=== PATIENT | male | born 1930 | race Caucasian/White ===

== ENCOUNTER → 2016-07-12 | Outpatient (CLI) | payer MEDICARE, BC ==
[~2016-07-12] MED LIST: /AMIO20TA OR; /TAMS4CA OR; /WARF5TA OR; ACET65TA OR; ATEN25TA PO; ATEN50TA2 OR; CALCTAB22 OR; FLEC50TA PO; MAGN500T2 OR; MULTIVIT OR; PRAD150C PO; PRADAXA OR; PRAV40TA2 PO; PROS5TAB OR; VITA200038 PO
[2016-07-12 12:42] LABS: MEAN CORPUSCULAR HEMOGLOBIN 30.1 pg (27.0-33.0); MEAN CORPUSCULAR HGB CONC 33.4 g/dl (32.0-36.5); MEAN CORPUSCULAR VOLUME 89.9 fl (80.0-96.0); RED CELL DISTRIBUTION WIDTH 13.8 % (11.5-14.5); WHITE BLOOD COUNT 6.3 K/mm3 (4.0-10.0)
[2016-07-12 13:15] LABS: ALBUMIN 3.9 GM/DL (3.2-5.2); ALBUMIN/GLOBULIN RATIO 1.18 (1.00-1.93); BILIRUBIN,TOTAL 0.7 MG/DL (0.2-1.0); CALCIUM LEVEL 9.1 MG/DL (8.8-10.2); CREATININE FOR GFR 1.25 MG/DL (0.70-1.30); GLOMERULAR FILTRATION RATE 58.6 (>35); MAGNESIUM LEVEL 2.1 MG/DL (1.8-2.4); POTASSIUM SERUM 4.1 MEQ/L (3.5-5.1); TOTAL PROTEIN 7.2 GM/DL (6.4-8.2)
== END ==
LOC: M SMT 08:12
PROVIDERS: ATTEND Physician Assistant
DX: I48.0 Paroxysmal atrial fibrillation (principal); E78.00 Pure hypercholesterolemia, unspecified; I11.9 Hypertensive heart disease without heart failure

== ENCOUNTER → 2016-07-13 | Outpatient (CLI) | payer MEDICARE, BC ==
[2016-07-13 15:09] LABS: ALBUMIN 3.8 GM/DL (3.2-5.2); ALBUMIN/GLOBULIN RATIO 1.23 (1.00-1.93); ALKALINE PHOSPHATASE 101 U/L (45-117); ALT/SGPT 26 U/L (12-78); ANION GAP 8 MEQ/L (8-16); AST/SGOT 24 U/L (15-37); BILIRUBIN,TOTAL 0.6 MG/DL (0.2-1.0); BLOOD UREA NITROGEN 19 MG/DL (7-18); CALCIUM LEVEL 9.1 MG/DL (8.8-10.2); CARBON DIOXIDE LEVEL 30 MEQ/L (21-32); CHLORIDE LEVEL 104 MEQ/L (98-107); CREATININE FOR GFR 1.18 MG/DL (0.70-1.30); GLOMERULAR FILTRATION RATE > 60.0 (>35); GLUCOSE, FASTING 110 MG/DL (83-110); POTASSIUM SERUM 4.5 MEQ/L (3.5-5.1); SODIUM LEVEL 142 MEQ/L (136-145); TOTAL PROTEIN 6.9 GM/DL (6.4-8.2)
[2016-07-13 15:43] LABS: BASO % 0.4 % (0.0-1.0); EOS # 0.1 K/mm3 (0.0-0.50); EOS % 1.3 % (0.0-3.0); LARGE UNSTAINED CELL # 0.2 K/mm3 (0.0-0.4); LARGE UNSTAINED CELL % 3.3 % (0.0-4.0); LYMPH # 0.9 K/mm3 (1.5-4.5); LYMPH % 14.2 % (24.0-44.0); MEAN CORPUSCULAR HEMOGLOBIN 29.4 pg (27.0-33.0); MEAN CORPUSCULAR HGB CONC 32.2 g/dl (32.0-36.5); MEAN CORPUSCULAR VOLUME 91.3 fl (80.0-96.0); MONO # 0.5 K/mm3 (0.0-0.8); MONO % 8.6 % (0.0-5.0); NEUTROPHILS # 4.3 K/mm3 (1.8-7.7); NEUTROPHILS % 72.2 % (36.0-66.0); PLATELET COUNT, AUTOMATED 171 k/mm3 (150-450)
== END ==
LOC: M SMT 11:07
PROVIDERS: ATTEND Internal Medicine Hematology & Oncology
DX: C83.13 Mantle cell lymphoma, intra-abdominal lymph nodes (principal)

== ENCOUNTER → 2016-07-13 | Outpatient (REF) | LOC: M SMT 10:59 | PROVIDERS: ATTEND Nurse Practitioner Adult Health | DX: Z02.89 Encounter for other administrative examinations (principal) ==

== ENCOUNTER → 2016-09-14 | Outpatient (CLI) | payer MEDICARE, BC | LOC: M SMT 09:48 | PROVIDERS: ATTEND Urology | DX: Z85.46 Personal history of malignant neoplasm of prostate (principal) ==

== ENCOUNTER → 2017-01-06 | Outpatient (CLI) | payer MEDICARE, BC ==
[2017-01-06 14:04] LABS: MEAN CORPUSCULAR HEMOGLOBIN 31.4 pg (27.0-33.0); MEAN CORPUSCULAR HGB CONC 34.6 g/dl (32.0-36.5); MEAN CORPUSCULAR VOLUME 90.7 fl (80.0-96.0); RED CELL DISTRIBUTION WIDTH 13.6 % (11.5-14.5); WHITE BLOOD COUNT 5.9 K/mm3 (4.0-10.0)
[2017-01-06 15:03] LABS: ALBUMIN 3.5 GM/DL (3.2-5.2); ALBUMIN/GLOBULIN RATIO 1.13 (1.00-1.93); BILIRUBIN,TOTAL 0.4 MG/DL (0.2-1.0); CALCIUM LEVEL 8.8 MG/DL (8.8-10.2); CREATININE FOR GFR 1.28 MG/DL (0.70-1.30); POTASSIUM SERUM 4.3 MEQ/L (3.5-5.1); TOTAL PROTEIN 6.6 GM/DL (6.4-8.2)
== END ==
LOC: M SMT 09:18
PROVIDERS: ATTEND Physician Assistant
DX: I48.0 Paroxysmal atrial fibrillation (principal); I11.9 Hypertensive heart disease without heart failure; E78.2 Mixed hyperlipidemia

== ENCOUNTER → 2017-01-14 | Outpatient (CLI) | payer MEDICARE, BC ==
[2017-01-14 10:08] LABS: BASO % 0.7 % (0.0-1.0); EOS # 0.3 K/mm3 (0.0-0.50); EOS % 4.2 % (0.0-3.0); LARGE UNSTAINED CELL # 0.1 K/mm3 (0.0-0.4); LYMPH # 1.3 K/mm3 (1.5-4.5); LYMPH % 20.2 % (24.0-44.0); MEAN CORPUSCULAR HEMOGLOBIN 30.2 pg (27.0-33.0); MEAN CORPUSCULAR HGB CONC 33.7 g/dl (32.0-36.5); MEAN CORPUSCULAR VOLUME 89.7 fl (80.0-96.0); MONO # 0.4 K/mm3 (0.0-0.8); MONO % 6.7 % (0.0-5.0); NEUTROPHILS % 66.2 % (36.0-66.0); PLATELET COUNT, AUTOMATED 184 k/mm3 (150-450); RED CELL DISTRIBUTION WIDTH 13.7 % (11.5-14.5); WHITE BLOOD COUNT 6.1 K/mm3 (4.0-10.0)
[2017-01-14 10:32] LABS: ALBUMIN 3.4 GM/DL (3.2-5.2); ALBUMIN/GLOBULIN RATIO 1.13 (1.00-1.93); ALKALINE PHOSPHATASE 92 U/L (45-117); ALT/SGPT 23 U/L (12-78); ANION GAP 10 MEQ/L (8-16); AST/SGOT 14 U/L (15-37); BILIRUBIN,TOTAL 0.4 MG/DL (0.2-1.0); BLOOD UREA NITROGEN 23 MG/DL (7-18); CARBON DIOXIDE LEVEL 28 MEQ/L (21-32); CHLORIDE LEVEL 106 MEQ/L (98-107); CREATININE FOR GFR 1.13 MG/DL (0.70-1.30); GLOMERULAR FILTRATION RATE > 60.0 (>35); GLUCOSE, FASTING 119 MG/DL (83-110); POTASSIUM SERUM 4.1 MEQ/L (3.5-5.1); SODIUM LEVEL 144 MEQ/L (136-145); TOTAL PROTEIN 6.4 GM/DL (6.4-8.2)
== END ==
LOC: M SMT 08:37
PROVIDERS: ATTEND Internal Medicine Hematology & Oncology
DX: C83.13 Mantle cell lymphoma, intra-abdominal lymph nodes (principal)

== ENCOUNTER → 2017-01-25 | Outpatient (CLI) | payer MEDICARE, BC ==
[2017-01-25 14:40] LABS: BASO % 0.7 % (0.0-1.0); EOS # 0.3 K/mm3 (0.0-0.50); EOS % 4.9 % (0.0-3.0); LARGE UNSTAINED CELL # 0.1 K/mm3 (0.0-0.4); LARGE UNSTAINED CELL % 1.7 % (0.0-4.0); LYMPH # 1.1 K/mm3 (1.5-4.5); LYMPH % 19.7 % (24.0-44.0); MEAN CORPUSCULAR HEMOGLOBIN 30.3 pg (27.0-33.0); MEAN CORPUSCULAR HGB CONC 33.6 g/dl (32.0-36.5); MEAN CORPUSCULAR VOLUME 90.2 fl (80.0-96.0); MONO # 0.5 K/mm3 (0.0-0.8); MONO % 8.5 % (0.0-5.0); NEUTROPHILS # 3.5 K/mm3 (1.8-7.7); NEUTROPHILS % 64.6 % (36.0-66.0); PLATELET COUNT, AUTOMATED 162 k/mm3 (150-450); RED CELL DISTRIBUTION WIDTH 13.6 % (11.5-14.5); WHITE BLOOD COUNT 5.4 K/mm3 (4.0-10.0)
[2017-01-25 15:09] LABS: ALBUMIN 3.6 GM/DL (3.2-5.2); ALBUMIN/GLOBULIN RATIO 1.16 (1.00-1.93); ALKALINE PHOSPHATASE 98 U/L (45-117); ALT/SGPT 18 U/L (12-78); ANION GAP 9 MEQ/L (8-16); AST/SGOT 13 U/L (15-37); BILIRUBIN,TOTAL 0.3 MG/DL (0.2-1.0); BLOOD UREA NITROGEN 20 MG/DL (7-18); CALCIUM LEVEL 8.9 MG/DL (8.8-10.2); CARBON DIOXIDE LEVEL 26 MEQ/L (21-32); CHLORIDE LEVEL 109 MEQ/L (98-107); CHOLESTEROL LEVEL 129 MG/DL (<200); GLOMERULAR FILTRATION RATE > 60.0 (>35); GLUCOSE, FASTING 107 MG/DL (83-110); POTASSIUM SERUM 4.5 MEQ/L (3.5-5.1); SODIUM LEVEL 144 MEQ/L (136-145); TOTAL PROTEIN 6.7 GM/DL (6.4-8.2); TRIGLYCERIDES LEVEL 113 MG/DL (<150)
== END ==
LOC: M SMT 08:01
PROVIDERS: ATTEND Family Medicine
DX: I48.2 Chronic atrial fibrillation (principal); E78.2 Mixed hyperlipidemia

== ENCOUNTER → 2017-07-11 | Outpatient (CLI) | payer MEDICARE, BC ==
[2017-07-13 00:06] LABS: FLECAINIDE LEVEL 0.54 ug/mL (0.20-1.00)
== END ==
LOC: M SMT 08:41
DX: I48.0 Paroxysmal atrial fibrillation (principal); Z79.899 Other long term (current) drug therapy
CPT/HCPCS: 36415

== ENCOUNTER 2017-07-28 01:25 | Emergency (ER) | payer MEDICARE, BC ==
[2017-07-28 02:29] LABS: BASO % 0.5 % (0.0-1.0); HEMATOCRIT 41.3 % (42.0-52.0); HEMOGLOBIN 13.7 g/dl (14.0-18.0); IMMATURE GRANULOCYTE % 0.4 % (0-3.0); LYMPH # 1.5 10^3/uL (1.5-4.5); LYMPH % 19.2 % (24.0-44.0); MEAN CORPUSCULAR HEMOGLOBIN 29.9 pg (27.0-33.0); MEAN CORPUSCULAR HGB CONC 33.2 g/dl (32.0-36.5); MEAN CORPUSCULAR VOLUME 90.2 fl (80.0-96.0); MONO # 0.8 10^3/uL (0.0-0.8); MONO % 9.8 % (0.0-5.0); NEUTROPHILS # 5.3 10^3/uL (1.8-7.7); NEUTROPHILS % 70.1 % (36.0-66.0); PLATELET COUNT, AUTOMATED 201 10^3/uL (150-450); RED BLOOD COUNT 4.58 10^6/uL (4.30-6.10); RED CELL DISTRIBUTION WIDTH 14.1 % (11.5-14.5); WHITE BLOOD COUNT 7.6 10^3/uL (4.0-10.0)
[2017-07-28 02:48] LABS: ANION GAP 7 MEQ/L (8-16); BLOOD UREA NITROGEN 21 MG/DL (7-18); CALCIUM LEVEL 8.9 MG/DL (8.8-10.2); CARBON DIOXIDE LEVEL 27 MEQ/L (21-32); CHLORIDE LEVEL 104 MEQ/L (98-107); CPK CREATINE PHOSPHOKINASE 91 U/L (39-308); CREATININE FOR GFR 1.38 MG/DL (0.70-1.30); FREE THYROXINE INDEX 3.9 % (1.4-3.8); GLOMERULAR FILTRATION RATE 52.1 (>35); GLUCOSE, FASTING 142 MG/DL (70-100); POTASSIUM SERUM 4.3 MEQ/L (3.5-5.1); SODIUM LEVEL 138 MEQ/L (136-145); T UPTAKE 34 % (33-40); THYROXINE (T4) 11.5 UG/DL (4.5-12.0); TROPONIN I 0.02 NG/ML (< 0.10)
[2017-07-28 02:53] LABS: CK-MB VALUE MASS 1.1 NG/ML (0.0-3.6)
[2017-07-28] MEDS: NS 500 ML IV (03:15)
== END 2017-07-28 04:26 | disposition home or self-care (01) ==
LOC: M ED 01:25
DX: E86.0 Dehydration (principal); T46.2X5A Adverse effect of other antidysrhythmic drugs, initial encounter; X58.XXXA Exposure to other specified factors, initial encounter; Y92.89 Other specified places as the place of occurrence of the external cause; I10 Essential (primary) hypertension; I48.91 Unspecified atrial fibrillation; N40.0 Benign prostatic hyperplasia without lower urinary tract symptoms; Z95.0 Presence of cardiac pacemaker; Z79.899 Other long term (current) drug therapy; Z79.01 Long term (current) use of anticoagulants
CPT/HCPCS: 70450

== ENCOUNTER → 2017-07-29 | Outpatient (CLI) | payer MEDICARE, BC ==
[2017-08-02 00:06] LABS: FLECAINIDE LEVEL 0.97 ug/mL (0.20-1.00)
== END ==
LOC: M SMT 09:22
DX: I48.3 Typical atrial flutter (principal); I48.0 Paroxysmal atrial fibrillation; Z79.899 Other long term (current) drug therapy
CPT/HCPCS: 36415

== ENCOUNTER → 2017-09-02 | Outpatient (CLI) | payer MEDICARE, BC ==
[2017-09-02 09:21] LABS: BASO % 0.4 % (0.0-1.0); HEMATOCRIT 38.1 % (42.0-52.0); HEMOGLOBIN 12.6 g/dl (14.0-18.0); IMMATURE GRANULOCYTE % 0.3 % (0-3.0); LYMPH # 1.1 10^3/uL (1.5-4.5); LYMPH % 15.5 % (24.0-44.0); MEAN CORPUSCULAR HEMOGLOBIN 29.1 pg (27.0-33.0); MEAN CORPUSCULAR HGB CONC 33.1 g/dl (32.0-36.5); MONO # 0.7 10^3/uL (0.0-0.8); MONO % 9.8 % (0.0-5.0); NEUTROPHILS # 5.3 10^3/uL (1.8-7.7); PLATELET COUNT, AUTOMATED 184 10^3/uL (150-450); RED BLOOD COUNT 4.33 10^6/uL (4.30-6.10); RED CELL DISTRIBUTION WIDTH 13.1 % (11.5-14.5); WHITE BLOOD COUNT 7.2 10^3/uL (4.0-10.0)
[2017-09-02 10:45] LABS: ALBUMIN 3.5 GM/DL (3.2-5.2); ALBUMIN/GLOBULIN RATIO 1.09 (1.00-1.93); ALKALINE PHOSPHATASE 92 U/L (45-117); ALT/SGPT 16 U/L (12-78); ANION GAP 11 MEQ/L (8-16); AST/SGOT 12 U/L (7-37); BILIRUBIN,TOTAL 0.7 MG/DL (0.2-1.0); BLOOD UREA NITROGEN 19 MG/DL (7-18); CALCIUM LEVEL 8.6 MG/DL (8.8-10.2); CARBON DIOXIDE LEVEL 23 MEQ/L (21-32); CHLORIDE LEVEL 109 MEQ/L (98-107); CREATININE FOR GFR 1.27 MG/DL (0.70-1.30); FREE T4 1.53 NG/DL (0.76-1.46); GLOMERULAR FILTRATION RATE 57.4 (>35); GLUCOSE, FASTING 102 MG/DL (70-100); POTASSIUM SERUM 4.3 MEQ/L (3.5-5.1); SODIUM LEVEL 143 MEQ/L (136-145); TOTAL PROTEIN 6.7 GM/DL (6.4-8.2)
== END ==
LOC: M SMT 08:08
DX: Z00.00 Encounter for general adult medical examination without abnormal findings (principal); Z79.01 Long term (current) use of anticoagulants; C83.10 Mantle cell lymphoma, unspecified site; I48.2 Chronic atrial fibrillation
CPT/HCPCS: 84443

== ENCOUNTER → 2017-09-08 | Outpatient (CLI) | payer MEDICARE, BC ==
[2017-09-08 18:45] LABS: PSA SCREENING 0.05 NG/ML (< 4.0)
== END ==
LOC: M SMT 13:07
DX: Z85.46 Personal history of malignant neoplasm of prostate (principal)
CPT/HCPCS: 84153; G0103

== ENCOUNTER → 2018-01-31 | Outpatient (CLI) | payer MEDICARE, BC ==
[2018-01-31 13:01] LABS: BASO % 0.5 % (0.0-1.0); HEMATOCRIT 41.1 % (42.0-52.0); HEMOGLOBIN 13.4 g/dl (13.5-17.5); IMMATURE GRANULOCYTE % 0.2 % (0-3.0); LYMPH # 1.2 10^3/uL (1.5-4.5); LYMPH % 18.8 % (24.0-44.0); MEAN CORPUSCULAR HEMOGLOBIN 30.2 pg (27.0-33.0); MEAN CORPUSCULAR HGB CONC 32.6 g/dl (32.0-36.5); MEAN CORPUSCULAR VOLUME 92.6 fl (80.0-96.0); MONO # 0.6 10^3/uL (0.0-0.8); MONO % 8.8 % (0.0-5.0); NEUTROPHILS # 4.6 10^3/uL (1.8-7.7); NEUTROPHILS % 71.7 % (36.0-66.0); PLATELET COUNT, AUTOMATED 160 10^3/uL (150-450); RED BLOOD COUNT 4.44 10^6/uL (4.30-6.10); RED CELL DISTRIBUTION WIDTH 13.5 % (11.5-14.5); WHITE BLOOD COUNT 6.4 10^3/uL (4.0-10.0)
[2018-01-31 13:22] LABS: ALBUMIN 3.4 GM/DL (3.2-5.2); ALBUMIN/GLOBULIN RATIO 1.03 (1.00-1.93); ALKALINE PHOSPHATASE 91 U/L (45-117); ALT/SGPT 26 U/L (12-78); ANION GAP 7 MEQ/L (8-16); AST/SGOT 19 U/L (7-37); BILIRUBIN,TOTAL 0.4 MG/DL (0.2-1.0); BLOOD UREA NITROGEN 18 MG/DL (7-18); CARBON DIOXIDE LEVEL 31 MEQ/L (21-32); CHLORIDE LEVEL 108 MEQ/L (98-107); CREATININE FOR GFR 1.21 MG/DL (0.70-1.30); GLOMERULAR FILTRATION RATE > 60.0 (>35); GLUCOSE, FASTING 107 MG/DL (70-100); LDH LACTATE DEHYDROGENASE 266 U/L (87-241); POTASSIUM SERUM 4.2 MEQ/L (3.5-5.1); SODIUM LEVEL 146 MEQ/L (136-145); TOTAL PROTEIN 6.7 GM/DL (6.4-8.2)
== END ==
LOC: M SMT 09:34
DX: C83.10 Mantle cell lymphoma, unspecified site (principal)
CPT/HCPCS: 83615

== ENCOUNTER → 2018-02-28 | Outpatient (CLI) | payer MEDICARE, BC ==
[2018-02-28 14:03] LABS: BASO % 0.5 % (0.0-1.0); HEMATOCRIT 42.3 % (42.0-52.0); HEMOGLOBIN 13.6 g/dl (13.5-17.5); IMMATURE GRANULOCYTE % 0.2 % (0-3.0); LYMPH # 1.4 10^3/uL (1.5-4.5); LYMPH % 22.3 % (24.0-44.0); MEAN CORPUSCULAR HEMOGLOBIN 30.4 pg (27.0-33.0); MEAN CORPUSCULAR HGB CONC 32.2 g/dl (32.0-36.5); MEAN CORPUSCULAR VOLUME 94.6 fl (80.0-96.0); MONO # 0.6 10^3/uL (0.0-0.8); MONO % 9.7 % (0.0-5.0); NEUTROPHILS # 4.1 10^3/uL (1.8-7.7); NEUTROPHILS % 67.3 % (36.0-66.0); PLATELET COUNT, AUTOMATED 160 10^3/uL (150-450); RED BLOOD COUNT 4.47 10^6/uL (4.30-6.10); RED CELL DISTRIBUTION WIDTH 13.7 % (11.5-14.5); WHITE BLOOD COUNT 6.1 10^3/uL (4.0-10.0)
[2018-02-28 14:44] LABS: ALBUMIN 3.6 GM/DL (3.2-5.2); ALBUMIN/GLOBULIN RATIO 1.13 (1.00-1.93); ALKALINE PHOSPHATASE 86 U/L (45-117); ALT/SGPT 20 U/L (12-78); ANION GAP 8 MEQ/L (8-16); AST/SGOT 18 U/L (7-37); BILIRUBIN,TOTAL 0.5 MG/DL (0.2-1.0); BLOOD UREA NITROGEN 17 MG/DL (7-18); CALCIUM LEVEL 8.7 MG/DL (8.8-10.2); CARBON DIOXIDE LEVEL 27 MEQ/L (21-32); CHLORIDE LEVEL 108 MEQ/L (98-107); CHOLESTEROL LEVEL 141 MG/DL (<200); CHOLESTEROL RISK RATIO 3.357 (<5); FREE T4 1.13 NG/DL (0.76-1.46); GLOMERULAR FILTRATION RATE > 60.0 (>35); GLUCOSE, FASTING 90 MG/DL (70-100); HDL CHOLESTEROL 42 MG/DL (>40); LDL CHOLESTEROL 65 MG/DL (<100); NON-HDL-C 99 MG/DL; POTASSIUM SERUM 4.8 MEQ/L (3.5-5.1); SODIUM LEVEL 143 MEQ/L (136-145); TOTAL PROTEIN 6.8 GM/DL (6.4-8.2); TRIGLYCERIDES LEVEL 169 MG/DL (<150)
== END ==
LOC: M SMT 08:09
DX: I48.2 Chronic atrial fibrillation (principal); E78.2 Mixed hyperlipidemia; C83.10 Mantle cell lymphoma, unspecified site
CPT/HCPCS: 84443

== ENCOUNTER → 2018-06-01 | Outpatient (CLI) | payer MEDICARE, BC ==
[~2018-06-01] MED LIST changes: +FLEC1TAB; +FLEC50HA PO; -FLEC50TA PO
[2018-06-01 13:33] LABS: BASO % 0.8 % (0.0-1.0); HEMATOCRIT 40.6 % (42.0-52.0); HEMOGLOBIN 13.2 g/dl (13.5-17.5); LYMPH # 1.4 10^3/uL (1.5-4.5); LYMPH % 25.7 % (24.0-44.0); MEAN CORPUSCULAR HEMOGLOBIN 29.9 pg (27.0-33.0); MEAN CORPUSCULAR HGB CONC 32.5 g/dl (32.0-36.5); MEAN CORPUSCULAR VOLUME 91.9 fl (80.0-96.0); MONO # 0.5 10^3/uL (0.0-0.8); MONO % 9.9 % (0.0-5.0); NEUTROPHILS # 3.4 10^3/uL (1.8-7.7); NEUTROPHILS % 63.4 % (36.0-66.0); PLATELET COUNT, AUTOMATED 166 10^3/uL (150-450); RED BLOOD COUNT 4.42 10^6/uL (4.30-6.10); WHITE BLOOD COUNT 5.3 10^3/uL (4.0-10.0)
[2018-06-01 13:55] LABS: ALBUMIN 3.6 GM/DL (3.2-5.2); BILIRUBIN,TOTAL 0.6 MG/DL (0.2-1.0); CALCIUM LEVEL 8.8 MG/DL (8.8-10.2); CREATININE FOR GFR 1.35 MG/DL (0.70-1.30); GLOMERULAR FILTRATION RATE 53.3 (>35); POTASSIUM SERUM 4.4 MEQ/L (3.5-5.1); TOTAL PROTEIN 6.8 GM/DL (6.4-8.2)
== END ==
LOC: M SMT 08:22
PROVIDERS: ATTEND Family Medicine
DX: I48.2 Chronic atrial fibrillation (principal); E78.2 Mixed hyperlipidemia

== ENCOUNTER → 2018-06-27 | Outpatient (CLI) | payer MEDICARE, BC ==
[2018-06-27 14:35] LABS: BLOOD UREA NITROGEN 20 MG/DL (7-18); CALCIUM LEVEL 8.5 MG/DL (8.8-10.2); CARBON DIOXIDE LEVEL 27 MEQ/L (21-32); CHLORIDE LEVEL 105 MEQ/L (98-107); CREATININE FOR GFR 1.18 MG/DL (0.70-1.30); GLOMERULAR FILTRATION RATE > 60.0 (>35); GLUCOSE, FASTING 98 MG/DL (70-100); POTASSIUM SERUM 4.4 MEQ/L (3.5-5.1); SODIUM LEVEL 139 MEQ/L (136-145)
== END ==
LOC: M SMT 09:46
PROVIDERS: ATTEND Family Medicine
DX: N17.9 Acute kidney failure, unspecified (principal)

== ENCOUNTER → 2018-08-07 | Outpatient (CLI) | payer MEDICARE, BC ==
[2018-08-07 10:56] LABS: BASO % 0.6 % (0.0-1.0); HEMATOCRIT 41.2 % (42.0-52.0); HEMOGLOBIN 13.4 g/dl (13.5-17.5); LYMPH # 1.7 10^3/uL (1.5-4.5); LYMPH % 24.6 % (24.0-44.0); MEAN CORPUSCULAR HGB CONC 32.5 g/dl (32.0-36.5); MEAN CORPUSCULAR VOLUME 92.4 fl (80.0-96.0); MONO # 0.9 10^3/uL (0.0-0.8); MONO % 12.2 % (0.0-5.0); NEUTROPHILS # 4.3 10^3/uL (1.8-7.7); NEUTROPHILS % 62.3 % (36.0-66.0); PLATELET COUNT, AUTOMATED 172 10^3/uL (150-450); RED BLOOD COUNT 4.46 10^6/uL (4.30-6.10); WHITE BLOOD COUNT 6.9 10^3/uL (4.0-10.0)
[2018-08-07 13:25] LABS: ALBUMIN 3.7 GM/DL (3.2-5.2); BILIRUBIN,TOTAL 0.6 MG/DL (0.2-1.0); CALCIUM LEVEL 8.9 MG/DL (8.8-10.2); CREATININE FOR GFR 1.32 MG/DL (0.70-1.30); GLOMERULAR FILTRATION RATE 54.7 (>35); POTASSIUM SERUM 4.6 MEQ/L (3.5-5.1); TOTAL PROTEIN 6.9 GM/DL (6.4-8.2)
== END ==
LOC: M SMT 09:39
PROVIDERS: ATTEND Physician Assistant
DX: C85.90 Non-Hodgkin lymphoma, unspecified, unspecified site (principal)

== ENCOUNTER → 2018-09-12 | Outpatient (CLI) | payer MEDICARE, BC ==
[~2018-09-12] MED LIST changes: -/AMIO20TA OR; -/TAMS4CA OR; -/WARF5TA OR; +AMIO1TAB OR; +COUM1TAB17 OR; +FLOM0.4C39 OR; -PRAD150C PO; +PRAD150C6 PO
== END ==
LOC: M SMT 10:04
PROVIDERS: ATTEND Urology
DX: Z85.46 Personal history of malignant neoplasm of prostate (principal)
CPT/HCPCS: 36415; G0103

== ENCOUNTER → 2018-11-28 | Outpatient (CLI) | payer MEDICARE, BC ==
--- NOTE | 2018-11-28 13:58 | REP ---
RENAL AND BLADDER ULTRASOUND: Real-time sonographic evaluation of the kidneys performed and demonstrates both kidneys to be normal in size and mildly increased in echotexture, possibly indicating some degree of medical renal disease. Right kidney measures 9.8 x 4.6 x 4.7 cm and left kidney 10.6 x 5.0 x 4.9 cm. There is no hydronephrosis bilaterally. Multiple right renal cysts are seen mostly in the range of 1 cm but a dominant cyst is seen in the upper right kidney medially measuring 4.4 x 4.2 x 4.8 cm. Bladder wall appears mildly thickened diffusely. It measures 13.5 x 8.7 x 8.7 cm for a total volume of 667 mL. Bilateral ureteral jets are seen in the urinary bladder with Doppler color evaluation. Linear possibly fibrotic band is seen in the dome of the bladder. Postvoid residual is 307 mL, which is 46% of the original volume. Prostate is enlarged measuring 5.8 x 5.2 x 5.5 cm. IMPRESSION: No hydronephrosis bilaterally. Right renal cysts. Somewhat echogenic kidney suggests some degree of medical renal disease. Mild diffuse thickening of the bladder wall. No evidence of bladder wall mass. Postvoid residual 46%. Enlarged prostate. Electronically Signed by Isrrael Arora MD 11/28/2018 04:35 P
== END ==
LOC: M RAD 11:20
PROVIDERS: ATTEND Internal Medicine Nephrology
DX: N18.3 Chronic kidney disease, stage 3 (moderate) (principal); N28.1 Cyst of kidney, acquired; N41.0 Acute prostatitis

== ENCOUNTER → 2019-02-08 | Outpatient (CLI) | payer MEDICARE, BC ==
[2019-02-09 10:37] LABS: BACTERIA, URINE AUTO NEGATIVE (NEGATIVE); RBC, URINE AUTO 6 /HPF (0-3); SQUAMOUS EPITHELIAL CELL UR AU 0 /HPF (0-6); WBC, URINE AUTO 1 /HPF (0-3)
[2019-02-09 11:02] LABS: CREATININE,RANDOM URINE 74.7 MG/DL; TOTAL PROTEIN,RANDOM URINE 63.4 MG/DL (0.0-12.0); URINE TOTAL PROTEIN 63.4 MG/DL (0-12)
[2019-02-09 11:36] LABS: TOTAL PROTEIN 6.8 GM/DL (6.4-8.2)
[2019-02-09 11:46] LABS: HEPATITIS B SURFACE ANTIBODY NEGATIVE (POSITIVE)
[2019-02-09 11:57] LABS: HEPATITIS B SURFACE ANTIGEN NEGATIVE (NEGATIVE)
[2019-02-09 12:26] LABS: HEPATITIS B CORE ANTIBODY IGM NEGATIVE (NEGATIVE)
[2019-02-14 13:13] LABS: ALBUMIN 3.95 GM/DL (3.29-5.55); ALBUMIN % 58.1 % (55.8-66.1); ALPHA-1-GLOBULIN % 4.8 % (2.9-4.9); ALPHA-1-GLOBULINS 0.33 GM/DL (0.17-0.41); ALPHA-2-GLOBULINS 0.82 GM/DL (0.42-0.99); ALPHA-2-GLOBULINS % 12.1 % (7.1-11.8); BETA-1-GLOBULINS 0.46 GM/DL (0.28-0.60); BETA-1-GLOBULINS % 6.8 % (4.7-7.2); BETA-2-GLOBULINS % 5.1 % (3.2-6.5); GAMMA GLOBULIN % 13.1 % (11.1-18.8)
[2019-02-14 13:14] LABS: BETA-2-GLOBULINS 0.35 GM/DL (0.19-0.55); GAMMA GLOBULINS 0.89 GM/DL (0.65-1.58)
[2019-02-15 15:01] LABS: URINE VOLUME RANDOM ML
[2019-02-15 15:02] LABS: UPEP INTERPRETATION NO M-SPIKE NOTED
[2019-02-16 08:06] LABS: ANCA-ATYPICAL <1:20 titer (Neg:<1:20); ANTI DS-DNA AB <1:10 titer (.); ANTINUCLEAR ANTIBODIES DIRECT Negative (Negative); CYTOPLASMIC NEUTROP AB ANCA-C <1:20 titer (Neg:<1:20); KAPPA/LAMBDA RATIO SERUM 1.44 (0.26-1.65); PERINUCLEAR AB ANCA-P <1:20 titer (Neg:<1:20)
== END ==
LOC: M SMT 10:29
PROVIDERS: ATTEND Internal Medicine Nephrology
DX: R80.9 Proteinuria, unspecified (principal)

== ENCOUNTER → 2019-03-12 | Outpatient (CLI) | payer MEDICARE, BC ==
--- NOTE | 2019-03-12 15:00 | REP ---
REASON: Right leg pain. COMPARISON: None. Mild to moderate degenerative changes are seen involving the hip and knee. There is no evidence of an acute fracture or destructive osseous lesion. IMPRESSION: Chronic changes. Electronically Signed by Enoch Chaidez DO 03/13/2019 09:40 A
--- NOTE | 2019-03-12 18:37 | REP ---
Right hip: Two views: History: Pain in the right leg. Findings: AP and frog-leg views right hip show moderate diffuse osteopenia. Vascular calcification is noted. There are surgical clips adjacent to the symphysis. Femoral head is smooth and rounded and hip joint spaces preserved. There is mild acetabular spurring. Impression: Mild acetabular spurring. Vascular calcification and diffuse osteoporosis noted. Electronically Signed by Magdaleno Hancock MD 03/13/2019 09:34 A
== END ==
LOC: M SMT 13:45
PROVIDERS: ATTEND Physician Assistant
DX: M79.604 Pain in right leg (principal)

== ENCOUNTER → 2019-05-07 | Outpatient (CLI) | payer MEDICARE, BC ==
[2019-05-07 11:06] LABS: BASO % 0.3 % (0.0-1.0); HEMATOCRIT 41.8 % (42.0-52.0); HEMOGLOBIN 13.1 g/dl (13.5-17.5); LYMPH # 1.4 10^3/uL (1.5-5.0); LYMPH % 24.7 % (24.0-44.0); MEAN CORPUSCULAR HGB CONC 31.3 g/dl (32.0-36.5); MEAN CORPUSCULAR VOLUME 92.5 fl (80.0-96.0); MONO # 0.6 10^3/uL (0.0-0.8); MONO % 10.2 % (0.0-5.0); NEUTROPHILS # 3.7 10^3/uL (1.5-8.5); NEUTROPHILS % 64.6 % (36.0-66.0); PLATELET COUNT, AUTOMATED 154 10^3/uL (150-450); RED BLOOD COUNT 4.52 10^6/uL (4.30-6.10); WHITE BLOOD COUNT 5.8 10^3/uL (4.0-10.0)
[2019-05-07 11:25] LABS: ALBUMIN 3.6 GM/DL (3.2-5.2); BILIRUBIN,TOTAL 0.9 MG/DL (0.2-1.0); CALCIUM LEVEL 9.6 MG/DL (8.8-10.2); CHOLESTEROL RISK RATIO 2.512 (<5); CREATININE FOR GFR 1.44 MG/DL (0.70-1.30); FREE T4 1.31 NG/DL (0.76-1.46); GLOMERULAR FILTRATION RATE 49.4 (>35); POTASSIUM SERUM 4.6 MEQ/L (3.5-5.1); THYROID STIMULATING HORMONE 1.88 uIU/ML (0.358-3.740); TOTAL PROTEIN 6.8 GM/DL (6.4-8.2)
== END ==
LOC: M PLALAB 08:29
PROVIDERS: ATTEND Family Medicine
DX: I48.20 Chronic atrial fibrillation, unspecified (principal); E78.2 Mixed hyperlipidemia

== ENCOUNTER → 2019-09-07 | Outpatient (CLI) | payer MEDICARE, BC ==
[2019-09-07 10:49] LABS: BLOOD UREA NITROGEN 25 MG/DL (7-18); CALCIUM LEVEL 8.9 MG/DL (8.8-10.2); CARBON DIOXIDE LEVEL 31 MEQ/L (21-32); CHLORIDE LEVEL 107 MEQ/L (98-107); CREATININE FOR GFR 1.21 MG/DL (0.70-1.30); GLOMERULAR FILTRATION RATE > 60.0 (>35); GLUCOSE, FASTING 103 MG/DL (70-100); POTASSIUM SERUM 4.4 MEQ/L (3.5-5.1); SODIUM LEVEL 142 MEQ/L (136-145)
[2019-09-07 11:27] LABS: BASO % 0.6 % (0.0-1.0); HEMATOCRIT 42.8 % (42.0-52.0); HEMOGLOBIN 13.7 g/dl (13.5-17.5); LYMPH # 1.7 10^3/uL (1.5-5.0); LYMPH % 28.2 % (24.0-44.0); MEAN CORPUSCULAR HEMOGLOBIN 29.5 pg (27.0-33.0); MEAN CORPUSCULAR VOLUME 92.2 fl (80.0-96.0); MONO # 0.6 10^3/uL (0.0-0.8); MONO % 10.2 % (0.0-5.0); NEUTROPHILS # 3.8 10^3/uL (1.5-8.5); NEUTROPHILS % 60.8 % (36.0-66.0); PLATELET COUNT, AUTOMATED 133 10^3/uL (150-450); RED BLOOD COUNT 4.64 10^6/uL (4.30-6.10); WHITE BLOOD COUNT 6.2 10^3/uL (4.0-10.0)
== END ==
LOC: M PLALAB 08:16
PROVIDERS: ATTEND Physician Assistant
DX: I48.20 Chronic atrial fibrillation, unspecified (principal); Z79.899 Other long term (current) drug therapy

== ENCOUNTER → 2019-09-17 | Outpatient (CLI) | payer MEDICARE, BC | LOC: M PLALAB 09:57 | PROVIDERS: ATTEND Urology | DX: Z85.46 Personal history of malignant neoplasm of prostate (principal) ==

== ENCOUNTER → 2019-12-06 | Outpatient (CLI) | payer MEDICARE, BC ==
[2019-12-06 12:10] LABS: BASO % 0.5 % (0.0-1.0); HEMATOCRIT 41.5 % (42.0-52.0); HEMOGLOBIN 13.1 g/dl (13.5-17.5); LYMPH # 1.7 10^3/uL (1.5-5.0); LYMPH % 26.6 % (24.0-44.0); MEAN CORPUSCULAR HEMOGLOBIN 29.4 pg (27.0-33.0); MEAN CORPUSCULAR HGB CONC 31.6 g/dl (32.0-36.5); MEAN CORPUSCULAR VOLUME 93.3 fl (80.0-96.0); MONO # 0.7 10^3/uL (0.0-0.8); NEUTROPHILS # 3.8 10^3/uL (1.5-8.5); NEUTROPHILS % 61.7 % (36.0-66.0); PLATELET COUNT, AUTOMATED 108 10^3/uL (150-450); RED BLOOD COUNT 4.45 10^6/uL (4.30-6.10); WHITE BLOOD COUNT 6.2 10^3/uL (4.0-10.0)
[2019-12-06 12:40] LABS: ALBUMIN 3.4 GM/DL (3.2-5.2); BILIRUBIN,TOTAL 0.5 MG/DL (0.2-1.0); CALCIUM LEVEL 8.6 MG/DL (8.8-10.2); CHOLESTEROL RISK RATIO 2.527 (<5); CREATININE FOR GFR 1.22 MG/DL (0.70-1.30); FREE T4 1.19 NG/DL (0.76-1.46); GLOMERULAR FILTRATION RATE 59.8 (>35); POTASSIUM SERUM 4.5 MEQ/L (3.5-5.1); THYROID STIMULATING HORMONE 1.88 uIU/ML (0.358-3.740); TOTAL PROTEIN 6.6 GM/DL (6.4-8.2)
== END ==
LOC: M PLALAB 08:31
PROVIDERS: ATTEND Family Medicine
DX: C83.10 Mantle cell lymphoma, unspecified site (principal); E78.2 Mixed hyperlipidemia

== ENCOUNTER → 2020-03-07 | Outpatient (CLI) | payer MEDICARE, BC ==
[2020-03-07 11:37] LABS: BASO % 0.4 % (0.0-1.0); HEMATOCRIT 42.6 % (42.0-52.0); HEMOGLOBIN 13.5 g/dl (13.5-17.5); LYMPH # 2.6 10^3/uL (1.5-5.0); LYMPH % 37.8 % (24.0-44.0); MEAN CORPUSCULAR HEMOGLOBIN 29.5 pg (27.0-33.0); MEAN CORPUSCULAR HGB CONC 31.7 g/dl (32.0-36.5); MEAN CORPUSCULAR VOLUME 93.2 fl (80.0-96.0); MONO # 0.7 10^3/uL (0.0-0.8); MONO % 9.8 % (0.0-5.0); NEUTROPHILS # 3.5 10^3/uL (1.5-8.5); NEUTROPHILS % 51.7 % (36.0-66.0); PLATELET COUNT, AUTOMATED 111 10^3/uL (150-450); RED BLOOD COUNT 4.57 10^6/uL (4.30-6.10); WHITE BLOOD COUNT 6.8 10^3/uL (4.0-10.0)
[2020-03-07 11:51] LABS: CALCIUM LEVEL 8.7 MG/DL (8.8-10.2); CREATININE FOR GFR 1.3 MG/DL (0.70-1.30); GLOMERULAR FILTRATION RATE 55.6 (>35); POTASSIUM SERUM 4.3 MEQ/L (3.5-5.1)
== END ==
LOC: M PLALAB 08:05
PROVIDERS: ATTEND Physician Assistant
DX: C83.10 Mantle cell lymphoma, unspecified site (principal); I48.20 Chronic atrial fibrillation, unspecified

== ENCOUNTER → 2020-08-25 | Outpatient (REF) | payer MEDICARE, BC ==
[2020-08-25 18:21] LABS: PERCENT SATURATION 16.9 % (19.7-50.0)
== END ==
LOC: M LAB REF 17:29
PROVIDERS: ATTEND Internal Medicine Nephrology
DX: N18.9 Chronic kidney disease, unspecified (principal); D63.1 Anemia in chronic kidney disease

== ENCOUNTER → 2020-09-08 | Outpatient (CLI) | payer MEDICARE, BC ==
[2020-09-08 10:27] LABS: HEMATOCRIT 36.1 % (42.0-52.0); HEMOGLOBIN 11.4 g/dl (13.5-17.5); MEAN CORPUSCULAR HEMOGLOBIN 29.5 pg (27.0-33.0); MEAN CORPUSCULAR HGB CONC 31.6 g/dl (32.0-36.5); MEAN CORPUSCULAR VOLUME 93.5 fl (80.0-96.0); RED BLOOD COUNT 3.86 10^6/uL (4.30-6.10)
[2020-09-08 10:42] LABS: PLATELET COUNT, AUTOMATED 68 10^3/uL (150-450); WHITE BLOOD COUNT 12.4 10^3/uL (4.0-10.0)
[2020-09-08 10:44] LABS: ATYPICAL LYMPH 2 % (0-5); LYMPHOCYTES 77 % (16-44); MONOCYTES 1 % (0-5); NEUTROPHILS 20 % (28-66)
[2020-09-08 10:45] LABS: ANISOCYTOSIS 2+; OVALOCYTES 2+; PLATELET ESTIMATE DECREASED (NORMAL)
[2020-09-08 10:54] LABS: ALBUMIN 3.6 GM/DL (3.2-5.2); BILIRUBIN,TOTAL 0.7 MG/DL (0.2-1.0); CALCIUM LEVEL 8.5 MG/DL (8.8-10.2); CHOLESTEROL RISK RATIO 3.875 (<5); CREATININE FOR GFR 1.5 MG/DL (0.70-1.30); POTASSIUM SERUM 4.2 MEQ/L (3.5-5.1); TOTAL PROTEIN 6.4 GM/DL (6.4-8.2)
== END ==
LOC: M PLALAB 08:07
PROVIDERS: ATTEND Family Medicine
DX: E78.2 Mixed hyperlipidemia (principal); I48.20 Chronic atrial fibrillation, unspecified; C83.10 Mantle cell lymphoma, unspecified site; D69.6 Thrombocytopenia, unspecified; D64.9 Anemia, unspecified

== ENCOUNTER → 2020-10-06 | Outpatient (REF) | payer MEDICARE, BC ==
[2020-10-06 11:25] LABS: HEMATOCRIT 33.5 % (42.0-52.0); HEMOGLOBIN 10.4 g/dl (13.5-17.5); MEAN CORPUSCULAR HEMOGLOBIN 29.5 pg (27.0-33.0); MEAN CORPUSCULAR VOLUME 95.2 fl (80.0-96.0); RED BLOOD COUNT 3.52 10^6/uL (4.30-6.10)
[2020-10-06 11:30] LABS: PLATELET COUNT, AUTOMATED 61 10^3/uL (150-450); WHITE BLOOD COUNT 15.4 10^3/uL (4.0-10.0)
[2020-10-06 11:54] LABS: BASOPHILS 1 % (0-1); EOSINOPHILS 1 % (0-3); LYMPHOCYTES 85 % (16-44); MONOCYTES 3 % (0-5); NEUTROPHILS 10 % (28-66)
[2020-10-06 11:55] LABS: PLATELET ESTIMATE DECREASED (NORMAL)
[2020-10-06 11:56] LABS: ANISOCYTOSIS 1+; POIKILOCYTOSIS 1+; POLYCHROMASIA 1+
== END ==
LOC: M PLALAB 09:53
PROVIDERS: ATTEND Family Medicine
DX: D69.6 Thrombocytopenia, unspecified (principal)

== ENCOUNTER → 2020-11-03 | Outpatient (REF) | payer MEDICARE, BC ==
[2020-11-03 13:09] LABS: HEMATOCRIT 30.6 % (42.0-52.0); HEMOGLOBIN 9.4 g/dl (13.5-17.5); MEAN CORPUSCULAR HEMOGLOBIN 28.9 pg (27.0-33.0); MEAN CORPUSCULAR HGB CONC 30.7 g/dl (32.0-36.5); MEAN CORPUSCULAR VOLUME 94.2 fl (80.0-96.0); RED BLOOD COUNT 3.25 10^6/uL (4.30-6.10)
[2020-11-03 13:12] LABS: PLATELET COUNT, AUTOMATED 57 10^3/uL (150-450); WHITE BLOOD COUNT 22.6 10^3/uL (4.0-10.0)
[2020-11-03 13:34] LABS: ATYPICAL LYMPH 8 % (0-5); BLAST CELLS 1 % (0-0); EOSINOPHILS 1 % (0-3); LYMPHOCYTES 73 % (16-44); MONOCYTES 3 % (0-5); NEUTROPHILS 13 % (28-66)
[2020-11-03 13:35] LABS: ANISOCYTOSIS 2+; PLATELET ESTIMATE DECREASED (NORMAL)
[2020-11-03 13:36] LABS: HYPOCHROMASIA 1+
== END ==
LOC: M PLALAB 12:38
PROVIDERS: ATTEND Family Medicine
DX: D69.6 Thrombocytopenia, unspecified (principal)

== ENCOUNTER → 2020-11-26 | Outpatient (CLI) | payer MEDICARE, BC ==
[2020-11-26 14:46] LABS: HEMOGLOBIN 8.1 g/dl (13.5-17.5); MEAN CORPUSCULAR HGB CONC 26.1 g/dl (32.0-36.5); MEAN CORPUSCULAR VOLUME 103.3 fl (80.0-96.0)
[2020-11-26 14:47] LABS: PLATELET COUNT, AUTOMATED 69 10^3/uL (150-450)
[2020-11-26 14:59] LABS: WHITE BLOOD COUNT 308.7 10^3/uL (4.0-10.0)
[2020-11-26 19:22] LABS: ANISOCYTOSIS 3+; ATYPICAL LYMPH 6 % (0-5); LYMPHOCYTES 92 % (16-44); NEUTROPHILS 2 % (28-66); PLATELET ESTIMATE DECREASED (NORMAL); SMUDGE CELLS 2+
[2020-11-26 19:23] LABS: POIKILOCYTOSIS 3+
== END ==
LOC: M PLALAB 10:49
PROVIDERS: ATTEND Physician Assistant
DX: C83.19 Mantle cell lymphoma, extranodal and solid organ sites (principal)

== ENCOUNTER → 2020-12-03 | Outpatient (REF) | payer MEDICARE, BC ==
[2020-12-03 14:38] LABS: HEMATOCRIT 33.4 % (42.0-52.0); HEMOGLOBIN 8.6 g/dl (13.5-17.5); MEAN CORPUSCULAR HEMOGLOBIN 26.9 pg (27.0-33.0); MEAN CORPUSCULAR HGB CONC 25.7 g/dl (32.0-36.5); MEAN CORPUSCULAR VOLUME 104.4 fl (80.0-96.0)
[2020-12-03 14:40] LABS: WHITE BLOOD COUNT 281.8 10^3/uL (4.0-10.0)
[2020-12-03 14:41] LABS: PLATELET COUNT, AUTOMATED 99 10^3/uL (150-450)
[2020-12-03 16:50] LABS: ATYPICAL LYMPH 1 % (0-5); LYMPHOCYTES 93 % (16-44); MONOCYTES 2 % (0-5); NEUTROPHILS 4 % (28-66)
[2020-12-03 16:51] LABS: ANISOCYTOSIS 4+; POIKILOCYTOSIS 1+; SMUDGE CELLS 2+
[2020-12-03 16:52] LABS: OVALOCYTES 1+; PLATELET ESTIMATE DECREASED (NORMAL)
== END ==
LOC: M PLALAB 13:25
PROVIDERS: ATTEND Physician Assistant
DX: C83.19 Mantle cell lymphoma, extranodal and solid organ sites (principal)

== ENCOUNTER → 2020-12-10 | Outpatient (CLI) | payer MEDICARE, BC ==
[2020-12-10 13:45] LABS: HEMATOCRIT 31.7 % (42.0-52.0); HEMOGLOBIN 8.7 g/dl (13.5-17.5); MEAN CORPUSCULAR HGB CONC 27.4 g/dl (32.0-36.5); MEAN CORPUSCULAR VOLUME 101.9 fl (80.0-96.0); RED BLOOD COUNT 3.11 10^6/uL (4.30-6.10)
[2020-12-10 14:23] LABS: PLATELET COUNT, AUTOMATED 84 10^3/uL (150-450); WHITE BLOOD COUNT 175.4 10^3/uL (4.0-10.0)
[2020-12-10 14:25] LABS: LYMPHOCYTES 96 % (16-44); NEUTROPHILS 4 % (28-66)
[2020-12-10 14:26] LABS: PLATELET ESTIMATE MARKED DECREASE (NORMAL); SMUDGE CELLS 1+
[2020-12-10 14:27] LABS: ANISOCYTOSIS 2+; HYPOCHROMASIA 1+; MICROCYTOSIS 1+
== END ==
LOC: M PLALAB 09:47
PROVIDERS: ATTEND Physician Assistant
DX: C83.19 Mantle cell lymphoma, extranodal and solid organ sites (principal)

== ENCOUNTER → 2020-12-17 | Outpatient (CLI) | payer MEDICARE, BC ==
[2020-12-17 14:05] LABS: HEMATOCRIT 32.2 % (42.0-52.0); HEMOGLOBIN 9.1 g/dl (13.5-17.5); MEAN CORPUSCULAR HEMOGLOBIN 28.1 pg (27.0-33.0); MEAN CORPUSCULAR HGB CONC 28.3 g/dl (32.0-36.5); MEAN CORPUSCULAR VOLUME 99.4 fl (80.0-96.0); RED BLOOD COUNT 3.24 10^6/uL (4.30-6.10)
[2020-12-17 14:32] LABS: PLATELET COUNT, AUTOMATED 85 10^3/uL (150-450); WHITE BLOOD COUNT 122.6 10^3/uL (4.0-10.0)
[2020-12-17 14:46] LABS: ATYPICAL LYMPH 3 % (0-5); LYMPHOCYTES 92 % (16-44); MONOCYTES 3 % (0-5); NEUTROPHILS 2 % (28-66)
[2020-12-17 14:47] LABS: ANISOCYTOSIS 2+; HYPOCHROMASIA 1+; OVALOCYTES 2+; PLATELET ESTIMATE DECREASED (NORMAL); POIKILOCYTOSIS 2+; SMUDGE CELLS 1+; TEAR DROP CELLS 1+
== END ==
LOC: M PLALAB 09:53
PROVIDERS: ATTEND Physician Assistant
DX: C83.19 Mantle cell lymphoma, extranodal and solid organ sites (principal)

== ENCOUNTER → 2020-12-31 | Outpatient (CLI) | payer MEDICARE, BC ==
[2020-12-31 19:26] LABS: HEMATOCRIT 32.1 % (42.0-52.0); HEMOGLOBIN 9.3 g/dl (13.5-17.5); MEAN CORPUSCULAR HEMOGLOBIN 28.4 pg (27.0-33.0); MEAN CORPUSCULAR VOLUME 97.9 fl (80.0-96.0); RED BLOOD COUNT 3.28 10^6/uL (4.30-6.10)
[2020-12-31 19:50] LABS: PLATELET COUNT, AUTOMATED 87 10^3/uL (150-450); WHITE BLOOD COUNT 75.9 10^3/uL (4.0-10.0)
[2020-12-31 20:50] LABS: ANISOCYTOSIS 3+; LYMPHOCYTES 96 % (16-44); MONOCYTES 1 % (0-5); NEUTROPHILS 3 % (28-66); OVALOCYTES 1+; POIKILOCYTOSIS 1+
[2020-12-31 20:51] LABS: PLATELET ESTIMATE DECREASED (NORMAL)
== END ==
LOC: M PLALAB 14:57
PROVIDERS: ATTEND Physician Assistant
DX: C83.19 Mantle cell lymphoma, extranodal and solid organ sites (principal)

== ENCOUNTER → 2021-01-14 | Outpatient (CLI) | payer MEDICARE, BC ==
[2021-01-14 15:25] LABS: HEMATOCRIT 32.6 % (42.0-52.0); HEMOGLOBIN 9.8 g/dl (13.5-17.5); MEAN CORPUSCULAR HEMOGLOBIN 28.5 pg (27.0-33.0); MEAN CORPUSCULAR HGB CONC 30.1 g/dl (32.0-36.5); MEAN CORPUSCULAR VOLUME 94.8 fl (80.0-96.0); RED BLOOD COUNT 3.44 10^6/uL (4.30-6.10)
[2021-01-14 15:45] LABS: PLATELET COUNT, AUTOMATED 95 10^3/uL (150-450); WHITE BLOOD COUNT 71.3 10^3/uL (4.0-10.0)
[2021-01-14 20:51] LABS: LYMPHOCYTES 91 % (16-44); MONOCYTES 2 % (0-5); NEUTROPHILS 7 % (28-66)
[2021-01-14 20:52] LABS: ANISOCYTOSIS 1+; OVALOCYTES 1+; PLATELET ESTIMATE DECREASED (NORMAL); POIKILOCYTOSIS 1+
[2021-01-14 20:53] LABS: POLYCHROMASIA 1+
== END ==
LOC: M PLALAB 13:26
PROVIDERS: ATTEND Physician Assistant
DX: C81.3 Lymphocyte depleted Hodgkin lymphoma (principal)

== ENCOUNTER → 2021-02-11 | Outpatient (CLI) | payer MEDICARE, BC ==
[2021-02-11 11:37] LABS: HEMATOCRIT 36.3 % (42.0-52.0); HEMOGLOBIN 11.1 g/dl (13.5-17.5); MEAN CORPUSCULAR HEMOGLOBIN 28.2 pg (27.0-33.0); MEAN CORPUSCULAR HGB CONC 30.6 g/dl (32.0-36.5); MEAN CORPUSCULAR VOLUME 92.4 fl (80.0-96.0); PLATELET COUNT, AUTOMATED 109 10^3/uL (150-450); RED BLOOD COUNT 3.93 10^6/uL (4.30-6.10)
[2021-02-11 11:52] LABS: WHITE BLOOD COUNT 69.3 10^3/uL (4.0-10.0)
[2021-02-11 12:44] LABS: ANISOCYTOSIS 1+; BASOPHILS 2 % (0-1); LYMPHOCYTES 86 % (16-44); MONOCYTES 3 % (0-5); NEUTROPHILS 9 % (28-66); PLATELET ESTIMATE DECREASED (NORMAL)
[2021-02-11 12:45] LABS: SMUDGE CELLS 1+
== END ==
LOC: M PLALAB 10:08
PROVIDERS: ATTEND Physician Assistant
DX: C83.19 Mantle cell lymphoma, extranodal and solid organ sites (principal)

== ENCOUNTER → 2021-02-11 | Outpatient (CLI) | payer MEDICARE, BC ==
[2021-02-12 23:09] LABS: PSA TOTAL <0.1 ng/mL (0.0-4.0)
== END ==
LOC: M PLALAB 10:11
PROVIDERS: ATTEND Urology
DX: C83.19 Mantle cell lymphoma, extranodal and solid organ sites (principal); Z85.46 Personal history of malignant neoplasm of prostate

== ENCOUNTER → 2021-03-12 | Outpatient (CLI) | payer MEDICARE, BC ==
[2021-03-12 13:47] LABS: HEMATOCRIT 37.4 % (42.0-52.0); HEMOGLOBIN 11.6 g/dl (13.5-17.5); MEAN CORPUSCULAR HEMOGLOBIN 28.6 pg (27.0-33.0); MEAN CORPUSCULAR VOLUME 92.3 fl (80.0-96.0); PLATELET COUNT, AUTOMATED 104 10^3/uL (150-450); RED BLOOD COUNT 4.05 10^6/uL (4.30-6.10)
[2021-03-12 13:52] LABS: WHITE BLOOD COUNT 47.8 10^3/uL (4.0-10.0)
[2021-03-12 14:56] LABS: ATYPICAL LYMPH 11 % (0-5); BASOPHILS 1 % (0-1); LYMPHOCYTES 79 % (16-44); MONOCYTES 2 % (0-5); NEUTROPHILS 7 % (28-66)
[2021-03-12 14:58] LABS: ANISOCYTOSIS 1+; PLATELET ESTIMATE DECREASED (NORMAL); SMUDGE CELLS 1+
== END ==
LOC: M PLALAB 09:47
PROVIDERS: ATTEND Physician Assistant
DX: C83.19 Mantle cell lymphoma, extranodal and solid organ sites (principal)

== ENCOUNTER → 2021-04-10 | Outpatient (CLI) | payer MEDICARE, BC ==
[2021-04-10 15:34] LABS: HEMOGLOBIN 11.8 g/dl (13.5-17.5); MEAN CORPUSCULAR HGB CONC 30.3 g/dl (32.0-36.5); MEAN CORPUSCULAR VOLUME 92.4 fl (80.0-96.0); RED BLOOD COUNT 4.22 10^6/uL (4.30-6.10)
[2021-04-10 15:36] LABS: PLATELET COUNT, AUTOMATED 91 10^3/uL (150-450); WHITE BLOOD COUNT 30.1 10^3/uL (4.0-10.0)
[2021-04-10 16:14] LABS: ATYPICAL LYMPH 73 % (0-5); LYMPHOCYTES 4 % (16-44); MONOCYTES 3 % (0-5); NEUTROPHILS 20 % (28-66); PLATELET ESTIMATE DECREASED (NORMAL); SMUDGE CELLS 1+
== END ==
LOC: M PLALAB 13:21
PROVIDERS: ATTEND Physician Assistant
DX: C83.19 Mantle cell lymphoma, extranodal and solid organ sites (principal)

== ENCOUNTER → 2021-06-02 | Outpatient (CLI) | payer MEDICARE, BC ==
[2021-06-02 15:18] LABS: BASO # 0.1 10^3/uL (0.0-0.2); BASO % 0.3 % (0.0-1.0); EOS # 0.2 10^3/uL (0.0-0.5); EOS % 0.8 % (0.0-3.0); HEMATOCRIT 39.6 % (42.0-52.0); LYMPH # 16.2 10^3/uL (1.5-5.0); LYMPH % 77.5 % (24.0-44.0); MEAN CORPUSCULAR HEMOGLOBIN 28.2 pg (27.0-33.0); MEAN CORPUSCULAR HGB CONC 30.3 g/dl (32.0-36.5); MONO # 0.6 10^3/uL (0.0-0.8); NEUTROPHILS # 3.8 10^3/uL (1.5-8.5); NEUTROPHILS % 18.2 % (36.0-66.0); PLATELET COUNT, AUTOMATED 101 10^3/uL (150-450); RED BLOOD COUNT 4.26 10^6/uL (4.30-6.10); WHITE BLOOD COUNT 20.9 10^3/uL (4.0-10.0)
== END ==
LOC: M PLALAB 14:20
PROVIDERS: ATTEND Physician Assistant
DX: C83.19 Mantle cell lymphoma, extranodal and solid organ sites (principal)

== ENCOUNTER → 2021-07-01 | Outpatient (CLI) | payer MEDICARE, BC ==
[2021-07-01 16:03] LABS: ALBUMIN 3.7 GM/DL (3.2-5.2); BILIRUBIN,TOTAL 0.4 MG/DL (0.2-1.0); CALCIUM LEVEL 8.9 MG/DL (8.8-10.2); CREATININE FOR GFR 1.22 MG/DL (0.70-1.30); GLOMERULAR FILTRATION RATE 59.5 (>35); POTASSIUM SERUM 3.8 MEQ/L (3.5-5.1); TOTAL PROTEIN 6.4 GM/DL (6.4-8.2)
== END ==
LOC: M PLALAB 13:59
PROVIDERS: ATTEND Physician Assistant
DX: C83.19 Mantle cell lymphoma, extranodal and solid organ sites (principal)

== ENCOUNTER → 2021-07-29 | Outpatient (CLI) | payer MEDICARE, BC ==
[2021-07-29 14:09] LABS: ALBUMIN 3.8 GM/DL (3.2-5.2); ALT/SGPT 20 U/L (12-78); BILIRUBIN,TOTAL 0.7 MG/DL (0.2-1.0); BLOOD UREA NITROGEN 22 MG/DL (7-18); CALCIUM LEVEL 9.7 MG/DL (8.8-10.2); CARBON DIOXIDE LEVEL 28 MEQ/L (21-32); CHLORIDE LEVEL 105 MEQ/L (98-107); CREATININE FOR GFR 1.17 MG/DL (0.70-1.30); GLOMERULAR FILTRATION RATE > 60.0 (>35); GLUCOSE, FASTING 105 MG/DL (70-100); POTASSIUM SERUM 4.5 MEQ/L (3.5-5.1); SODIUM LEVEL 141 MEQ/L (136-145); TOTAL PROTEIN 6.5 GM/DL (6.4-8.2)
== END ==
LOC: M PLALAB 10:25
PROVIDERS: ATTEND Physician Assistant
DX: C83.19 Mantle cell lymphoma, extranodal and solid organ sites (principal)

== ENCOUNTER → 2021-08-26 | Outpatient (CLI) | payer MEDICARE, BC ==
[2021-08-26 14:31] LABS: ALBUMIN 3.6 GM/DL (3.2-5.2); BILIRUBIN,TOTAL 0.5 MG/DL (0.2-1.0); CALCIUM LEVEL 9.1 MG/DL (8.8-10.2); CREATININE FOR GFR 1.22 MG/DL (0.70-1.30); GLOMERULAR FILTRATION RATE 59.5 (>35); POTASSIUM SERUM 4.2 MEQ/L (3.5-5.1); TOTAL PROTEIN 6.3 GM/DL (6.4-8.2)
== END ==
LOC: M PLALAB 11:38
PROVIDERS: ATTEND Physician Assistant
DX: C83.19 Mantle cell lymphoma, extranodal and solid organ sites (principal)

== ENCOUNTER 2021-09-02 10:43 | Inpatient (IN) | payer MEDICARE, BC ==
[~2021-09-02] VITALS: Ht 165.1 cm; Wt 72.6 kg
[2021-09-02] MEDS ORDERED: PRAD75CA5 PO (11:33)
[2021-09-02] MEDS ORDERED: CALQ100C PO (11:33)
[2021-09-02] MEDS ORDERED: RA N1TAB PO (11:34)
[2021-09-02] MEDS ORDERED: BISO5TAB14 PO (11:42)
[2021-09-02] MEDS ORDERED: FINA5TAB2 PO (11:42)
[2021-09-02] MEDS ORDERED: DIGO0.123 PO (11:42)
[2021-09-02] MEDS ORDERED: ROSU20TA5 PO (11:42)
[2021-09-02] MEDS ORDERED: CALCTAB89 PO (11:42)
[2021-09-02] MEDS ORDERED: D200CAP3 PO (11:42)
[2021-09-02] MEDS ORDERED: FLOM0.4C39 PO (11:42)
[2021-09-02] MEDS ORDERED: FERR324T21 PO (11:42)
[2021-09-02] MEDS ORDERED: VITMTA PO (11:42)
[2021-09-02] MEDS ORDERED: HOME MED LIST COMPLETE! XX SCH (11:55)
[2021-09-02 11:58] LABS: BASO % 0.1 % (0.0-1.0); HEMATOCRIT 40.1 % (42.0-52.0); HEMOGLOBIN 12.9 g/dl (13.5-17.5); LYMPH # 7.4 10^3/uL (1.5-5.0); MEAN CORPUSCULAR HEMOGLOBIN 28.9 pg (27.0-33.0); MEAN CORPUSCULAR HGB CONC 32.2 g/dl (32.0-36.5); MEAN CORPUSCULAR VOLUME 89.7 fl (80.0-96.0); MONO # 0.6 10^3/uL (0.0-0.8); MONO % 5.1 % (2.0-8.0); NEUTROPHILS # 2.9 10^3/uL (1.5-8.5); NEUTROPHILS % 26.6 % (36.0-66.0); RED BLOOD COUNT 4.47 10^6/uL (4.30-6.10); WHITE BLOOD COUNT 10.9 10^3/uL (4.0-10.0)
[2021-09-02 12:00] LABS: PLATELET COUNT, AUTOMATED 76 10^3/uL (150-450)
[2021-09-02 12:26] LABS: CK-MB VALUE MASS < 1.0 NG/ML (<3.6); CPK CREATINE PHOSPHOKINASE 86 U/L (39-308); MB/CK RELATIVE INDEX 1.16 (< OR =4)
[2021-09-02 12:31] LABS: BLOOD UREA NITROGEN 22 MG/DL (7-18); CALCIUM LEVEL 8.3 MG/DL (8.8-10.2); CARBON DIOXIDE LEVEL 26 MEQ/L (21-32); CHLORIDE LEVEL 104 MEQ/L (98-107); CREATININE FOR GFR 1.15 MG/DL (0.70-1.30); GLOMERULAR FILTRATION RATE > 60.0 (>35); GLUCOSE, FASTING 116 MG/DL (70-100); SODIUM LEVEL 135 MEQ/L (136-145)
[2021-09-02 12:32] LABS: ALBUMIN 3.2 GM/DL (3.2-5.2); ALT/SGPT 32 U/L (12-78); BILIRUBIN,DIRECT 0.3 MG/DL (0.0-0.2); BILIRUBIN,TOTAL 0.7 MG/DL (0.2-1.0); TOTAL PROTEIN 6.1 GM/DL (6.4-8.2)
[2021-09-02] MEDS ORDERED: NS 1,000 ML IV SCH (12:55)
[2021-09-02] MEDS ORDERED: NS 500 ML IV ONE (12:55)
[2021-09-02 15:26] LABS: CK-MB VALUE MASS 1.1 NG/ML (<3.6); MB/CK RELATIVE INDEX 1.49 (< OR =4)
[2021-09-02] MEDS ORDERED: ONDANSETRON 4MG/2ML VIAL IV PRN (16:25)
[2021-09-02] MEDS: D5W/0.9% SODIUM CHLORIDE 1,000 ML IV SCH (17:15)
[2021-09-02] MEDS: FINASTERIDE 5MG TAB PO SCH (18:30)
[2021-09-02 20:30] VITALS: BP 160/72
[2021-09-02] MEDS: DABIGATRAN ETEXILATE 75 MG CAP (PRADAXA) PO SCH (21:12)
[2021-09-03] VITALS: BP_SYST 110; BP_SYST 151; BP_SYST 187; BP_DIAS 66; BP_DIAS 78; BP_DIAS 92
[2021-09-03 05:05] VITALS: BP 132/63
[2021-09-03] MEDS: ACETAMINOPHEN TAB 650MG DOSE (2X325MG) PO PRN ×2 (05:24→20:05)
[2021-09-03] MEDS: D5W/0.9% SODIUM CHLORIDE 1,000 ML IV SCH (06:43)
[2021-09-03 08:00] VITALS: BP_SYST 123; BP_SYST 124; BP_SYST 166; BP_DIAS 58; BP_DIAS 59; BP_DIAS 71
[2021-09-03] MEDS: DABIGATRAN ETEXILATE 75 MG CAP (PRADAXA) PO SCH ×2 (08:13→20:05)
[2021-09-03] MEDS: TAMSULOSIN 0.4 MG CAP PO SCH (08:13)
[2021-09-03] MEDS: DIGOXIN 0.125 MG TAB PO SCH (08:15)
[2021-09-03 08:18] LABS: HEMATOCRIT 34.5 % (42.0-52.0); HEMOGLOBIN 11.3 g/dl (13.5-17.5); MEAN CORPUSCULAR HEMOGLOBIN 28.9 pg (27.0-33.0); MEAN CORPUSCULAR HGB CONC 32.8 g/dl (32.0-36.5); MEAN CORPUSCULAR VOLUME 88.2 fl (80.0-96.0); RED BLOOD COUNT 3.91 10^6/uL (4.30-6.10); WHITE BLOOD COUNT 7.9 10^3/uL (4.0-10.0)
[2021-09-03 08:19] LABS: PLATELET COUNT, AUTOMATED 66 10^3/uL (150-450)
[2021-09-03 08:28] LABS: INR 1.11; PROTHROMBIN TIME 14.7 SECONDS (12.7-14.5)
[2021-09-03 08:29] LABS: PARTIAL THROMBOPLASTIN TIME 34.4 SECONDS (25.9-37.0)
[2021-09-03 08:39] LABS: BLOOD UREA NITROGEN 18 MG/DL (7-18); CALCIUM LEVEL 7.7 MG/DL (8.8-10.2); CARBON DIOXIDE LEVEL 21 MEQ/L (21-32); CHLORIDE LEVEL 113 MEQ/L (98-107); CREATININE FOR GFR 0.98 MG/DL (0.70-1.30); GLOMERULAR FILTRATION RATE > 60.0 (>35); GLUCOSE, FASTING 132 MG/DL (70-100); POTASSIUM SERUM 3.7 MEQ/L (3.5-5.1); SODIUM LEVEL 140 MEQ/L (136-145)
[2021-09-03 08:46] LABS: ATYPICAL LYMPH 16 % (0-5); LYMPHOCYTES 55 % (16-44); MONOCYTES 6 % (0-5); NEUTROPHILS 22 % (28-66)
[2021-09-03 08:49] LABS: OVALOCYTES 2+; PLATELET ESTIMATE DECREASED (NORMAL)
[2021-09-03] MEDS ORDERED: LOPERAMIDE 2 MG CAPLET PO PRN (09:50)
[2021-09-03 14:00] VITALS: BP 165/71
[2021-09-03 16:00] VITALS: BP_SYST 153; BP_SYST 166; BP_SYST 168; BP_DIAS 60; BP_DIAS 73; BP_DIAS 77
[2021-09-03] MEDS: FINASTERIDE 5MG TAB PO SCH (17:55)
[2021-09-03 20:00] VITALS: BP 158/67
[2021-09-04 00:12] VITALS: BP_SYST 117; BP_SYST 119; BP_SYST 124; BP_DIAS 56; BP_DIAS 58; BP_DIAS 60
[2021-09-04 04:00] VITALS: BP 175/74
[2021-09-04] MEDS: ACETAMINOPHEN TAB 650MG DOSE (2X325MG) PO PRN (05:38)
[2021-09-04 07:30] LABS: HEMATOCRIT 35.6 % (42.0-52.0); HEMOGLOBIN 11.7 g/dl (13.5-17.5); MEAN CORPUSCULAR HEMOGLOBIN 28.4 pg (27.0-33.0); MEAN CORPUSCULAR HGB CONC 32.9 g/dl (32.0-36.5); MEAN CORPUSCULAR VOLUME 86.4 fl (80.0-96.0); RED BLOOD COUNT 4.12 10^6/uL (4.30-6.10); WHITE BLOOD COUNT 7.3 10^3/uL (4.0-10.0)
[2021-09-04 07:32] LABS: PLATELET COUNT, AUTOMATED 68 10^3/uL (150-450)
[2021-09-04 07:51] LABS: BLOOD UREA NITROGEN 18 MG/DL (7-18); CARBON DIOXIDE LEVEL 22 MEQ/L (21-32); CHLORIDE LEVEL 111 MEQ/L (98-107); CREATININE FOR GFR 0.97 MG/DL (0.70-1.30); GLOMERULAR FILTRATION RATE > 60.0 (>35); GLUCOSE, FASTING 113 MG/DL (70-100); POTASSIUM SERUM 3.9 MEQ/L (3.5-5.1); SODIUM LEVEL 138 MEQ/L (136-145)
[2021-09-04 07:57] LABS: ATYPICAL LYMPH 3 % (0-5); BASOPHILS 1 % (0-1); EOSINOPHILS 1 % (0-3); LYMPHOCYTES 61 % (16-44); MONOCYTES 3 % (0-5); NEUTROPHILS 31 % (28-66); PLATELET ESTIMATE DECREASED (NORMAL)
[2021-09-04 08:21] VITALS: BP_SYST 110; BP_SYST 116; BP_SYST 119; BP_DIAS 56; BP_DIAS 57
[2021-09-04] MEDS: TAMSULOSIN 0.4 MG CAP PO SCH (08:24)
[2021-09-04] MEDS: DIGOXIN 0.125 MG TAB PO SCH (08:24)
[2021-09-04] MEDS: DABIGATRAN ETEXILATE 75 MG CAP (PRADAXA) PO SCH (08:24)
[2021-09-04] MEDS ORDERED: LOPE1CAP5 PO (11:45)
[2021-09-04 14:00] VITALS: BP 173/75
[2021-09-04 14:45] VITALS: BP 151/69
[2021-09-04] MEDS: FINASTERIDE 5MG TAB PO SCH (17:17)
== END 2021-09-04 17:55 | disposition home or self-care (01) | DRG 178 ==
LOC: M ED 10:43 → M ED INP 15:53 → M 4MAIN 20:30
PROVIDERS: ADMIT Internal Medicine Nephrology; ATTEND Internal Medicine Nephrology
DX: U07.1 COVID-19 (principal); I48.92 Unspecified atrial flutter; C83.10 Mantle cell lymphoma, unspecified site; I48.0 Paroxysmal atrial fibrillation; I12.9 Hypertensive chronic kidney disease with stage 1 through stage 4 chronic kidney disease, or unspecified chronic kidney disease; E86.0 Dehydration; I95.1 Orthostatic hypotension; E78.5 Hyperlipidemia, unspecified; H91.93 Unspecified hearing loss, bilateral; D69.59 Other secondary thrombocytopenia; R19.7 Diarrhea, unspecified; I49.5 Sick sinus syndrome; N18.30 Chronic kidney disease, stage 3 unspecified; Z95.0 Presence of cardiac pacemaker; Z87.891 Personal history of nicotine dependence; Z85.46 Personal history of malignant neoplasm of prostate; Z79.899 Other long term (current) drug therapy

== ENCOUNTER 2021-09-08 13:35 | Inpatient (IN) | payer MEDICARE, BC ==
[~2021-09-08] VITALS: Ht 165.1 cm; Wt 74.8 kg
[~2021-09-08 13:35] MED LIST changes: +BISO5TAB14 PO; +CALCTAB89 PO; +CALQ100C PO; +D200CAP3 PO; +DIGO0.123 PO; +FERR324T21 PO; +FINA5TAB2 PO; +FLOM0.4C39 PO; +LOPE1CAP5 PO; +PRAD75CA5 PO; +RA N1TAB PO; +ROSU20TA5 PO; +VITMTA PO
[2021-09-08 14:19] LABS: HEMATOCRIT 35.4 % (42.0-52.0); HEMOGLOBIN 11.8 g/dl (13.5-17.5); MEAN CORPUSCULAR HEMOGLOBIN 28.6 pg (27.0-33.0); MEAN CORPUSCULAR HGB CONC 33.3 g/dl (32.0-36.5); MEAN CORPUSCULAR VOLUME 85.7 fl (80.0-96.0); RED BLOOD COUNT 4.13 10^6/uL (4.30-6.10); WHITE BLOOD COUNT 8.6 10^3/uL (4.0-10.0)
[2021-09-08 14:20] LABS: PLATELET COUNT, AUTOMATED 99 10^3/uL (150-450)
[2021-09-08 14:30] LABS: INR 1.57; PROTHROMBIN TIME 19.2 SECONDS (12.7-14.5)
[2021-09-08 14:33] LABS: D-DIMER QUANT 2825.89 ng/ml (<500)
[2021-09-08 14:40] LABS: CK-MB VALUE MASS 3.8 NG/ML (<3.6); MB/CK RELATIVE INDEX 1.51 (< OR =4)
[2021-09-08 14:41] LABS: ABG HCO3 16.9 MEQ/L (22.0-26.0); ABG O2 SATURATION 93.4 % (95.0-99.0); ABG PARTIAL PRESSURE CO2 23.6 mmHg (35.0-45.0); ABG PARTIAL PRESSURE O2 64.6 mmHg (75.0-100.0); ABG STANDARD HCO3 20.3 MEQ/L (22.0-26.0); ABG TOTAL CO2 17.7 MEQ/L (23.0-31.0); ABG pH (ARTERIAL) 7.474 UNITS (7.350-7.450)
[2021-09-08 14:58] LABS: ATYPICAL LYMPH 30 % (0-5); LYMPHOCYTES 17 % (16-44); NEUTROPHILS 50 % (28-66); PLATELET ESTIMATE DECREASED (NORMAL)
[2021-09-08 14:59] LABS: SMUDGE CELLS 1+
[2021-09-08 15:12] LABS: ALBUMIN 2.3 GM/DL (3.2-5.2); BILIRUBIN,DIRECT 0.3 MG/DL (0.0-0.2); BILIRUBIN,TOTAL 0.6 MG/DL (0.2-1.0); CALCIUM LEVEL 7.6 MG/DL (8.8-10.2); CREATININE FOR GFR 2.16 MG/DL (0.70-1.30); GLOMERULAR FILTRATION RATE 30.8 (>35); POTASSIUM SERUM 4.2 MEQ/L (3.5-5.1); THYROID STIMULATING HORMONE 1.19 uIU/ML (0.358-3.740); TOTAL PROTEIN 5.2 GM/DL (6.4-8.2)
[2021-09-08] MEDS ORDERED: FUROSEMIDE 20MG/2ML VIAL (J1940) IV ONE (15:25)
[2021-09-08] MEDS ORDERED: HOME MED LIST COMPLETE! XX SCH (16:30)
[2021-09-08] MEDS ORDERED: VANCOMYCIN HCL 1,000 MG, VIAL MATE ADAPTER 1 EACH in NS 250 ML IV SCH (17:15)
[2021-09-08] MEDS ORDERED: NS 1,000 ML IV SCH (17:15)
[2021-09-08] MEDS ORDERED: PIPERACILLIN/TAZOBACTAM SOD 3.375 GM in D5W MINI-BAG PLUS 50 ML IV SCH (17:15)
[2021-09-08] MEDS ORDERED: HEPARIN SOD (PORCINE) 5000UNITS/ML 1ML VIAL/SYRINGE IV PRN (17:35)
[2021-09-08] MEDS ORDERED: HEPARIN DRIP 25,000 UNITS in IV 1 EA IV SCH (17:35)
[2021-09-08] MEDS ORDERED: VANCOMYCIN HCL 750 MG, VIAL MATE ADAPTER 1 EACH in NS 250 ML IV ONE ×2 (18:00→19:00)
[2021-09-08] MEDS ORDERED: VANCOMYCIN HCL 1,000 MG, VIAL MATE ADAPTER 1 EACH in NS 250 ML IV ONE (18:00)
[2021-09-08 18:55] LABS: INR 1.54; PROTHROMBIN TIME 18.9 SECONDS (12.7-14.5)
[2021-09-08 18:56] LABS: PARTIAL THROMBOPLASTIN TIME 59.2 SECONDS (25.9-37.0)
[2021-09-08] MEDS: PIPERACILLIN/TAZOBACTAM SOD 4.5 GM in D5W MINI-BAG PLUS 50 ML IV SCH (19:00)
[2021-09-08 19:08] LABS: ALBUMIN 2.2 GM/DL (3.2-5.2); BILIRUBIN,DIRECT 0.2 MG/DL (0.0-0.2); BILIRUBIN,TOTAL 0.6 MG/DL (0.2-1.0); C REACTIVE PROTEIN QUANTITATIV 15.5 MG/DL (0.00-0.30); MAGNESIUM LEVEL 2.5 MG/DL (1.8-2.4); TOTAL PROTEIN 5.1 GM/DL (6.4-8.2)
[2021-09-08 19:42] LABS: CK-MB VALUE MASS 3.5 NG/ML (<3.6); MB/CK RELATIVE INDEX 1.75 (< OR =4)
[2021-09-08] MEDS: DOXYCYCLINE HYCLATE 100 MG in D5W MINI-BAG PLUS 100 ML IV SCH (19:54)
[2021-09-08 20:08] LABS: HEPATITIS B CORE ANTIBODY IGM NEGATIVE (NEGATIVE); HEPATITIS B SURFACE ANTIGEN NEGATIVE (NEGATIVE); HEPATITIS C VIRUS ABY INDEX 0.2 INDEX (<0.8)
[2021-09-08 20:38] LABS: CK-MB VALUE MASS 3.5 NG/ML (<3.6); MB/CK RELATIVE INDEX 1.56 (< OR =4)
[2021-09-08 21:00] VITALS: BP 154/67
[2021-09-08] MEDS ORDERED: REMDESIVIR 200 MG in NS 250 ML IV ONE (21:00)
[2021-09-08 21:10] LABS: CALCIUM LEVEL 7.8 MG/DL (8.8-10.2); CREATININE FOR GFR 1.97 MG/DL (0.70-1.30); GLOMERULAR FILTRATION RATE 34.3 (>35); POTASSIUM SERUM 4.6 MEQ/L (3.5-5.1)
[2021-09-08] MEDS: PANTOPRAZOLE 40MG VIAL IV SCH (21:19)
[2021-09-08] MEDS: ROSUVASTATIN 10 MG TAB (CRESTOR) PO SCH (21:19)
[2021-09-08] MEDS: guaiFENesin ER 600 MG TAB PO SCH (21:19)
[2021-09-08 21:30] VITALS: BP 138/66
[2021-09-08] MEDS ORDERED: ACETAMINOPHEN TAB 650MG DOSE (2X325MG) PO ONE (21:55)
[2021-09-08 22:00] VITALS: BP 105/55; O2SAT 93
[2021-09-08] MEDS ORDERED: SODIUM CHLORIDE 0.9% INJ 10 ML SYR IV ONE (22:00)
[2021-09-08 22:26] LABS: ABG O2 SATURATION 97.6 % (95.0-99.0); ABG PARTIAL PRESSURE CO2 25.5 mmHg (35.0-45.0); ABG PARTIAL PRESSURE O2 103.2 mmHg (75.0-100.0); ABG STANDARD HCO3 18.8 MEQ/L (22.0-26.0); ABG TOTAL CO2 16.8 MEQ/L (23.0-31.0); ABG pH (ARTERIAL) 7.416 UNITS (7.350-7.450)
[2021-09-08 22:57] LABS: AMORPHOUS SEDIMENT SMALL (NEGATIVE); APPEARANCE, URINE HAZY (CLEAR); BACTERIA, URINE AUTO NEGATIVE (NEGATIVE); BILIRUBIN, URINE AUTO NEGATIVE (NEGATIVE); BLOOD, URINE BLOOD NEGATIVE (NEGATIVE); COLOR, URINE YELLOW (YELLOW); GLUCOSE, URINE (UA) AUTO NEGATIVE (NEGATIVE); KETONE, URINE AUTO NEGATIVE (NEGATIVE); LEUKOCYTE ESTERASE, URINE AUTO NEGATIVE (NEGATIVE); MUCUS, URINE SMALL (NEGATIVE); NITRITE, URINE AUTO NEGATIVE (NEGATIVE); PROTEIN, URINE AUTO 1+ mg/dL (NEGATIVE); RBC, URINE AUTO 5 /HPF (0-3); SPECIFIC GRAVITY URINE AUTO 1.016 (1.002-1.035); SQUAMOUS EPITHELIAL CELL UR AU 1 /HPF (0-6); UROBILINOGEN, URINE AUTO 0.2 mg/dL (0.0-2.0); WBC, URINE AUTO 3 /HPF (0-3)
[2021-09-08 23:00] VITALS: BP 113/64
[2021-09-09] VITALS (24 sets, daily range): BP systolic 92–154; BP diastolic 53–86; O2SAT 83–100
[2021-09-09 00:17] LABS: MB/CK RELATIVE INDEX 1.07 (< OR =4)
[2021-09-09 06:04] LABS: HEMATOCRIT 36.5 % (42.0-52.0); MEAN CORPUSCULAR HEMOGLOBIN 28.6 pg (27.0-33.0); MEAN CORPUSCULAR HGB CONC 32.9 g/dl (32.0-36.5); MEAN CORPUSCULAR VOLUME 87.1 fl (80.0-96.0); PLATELET COUNT, AUTOMATED 102 10^3/uL (150-450); RED BLOOD COUNT 4.19 10^6/uL (4.30-6.10); WHITE BLOOD COUNT 10.2 10^3/uL (4.0-10.0)
[2021-09-09] MEDS: PIPERACILLIN/TAZOBACTAM SOD 4.5 GM in D5W MINI-BAG PLUS 50 ML IV SCH (06:15)
[2021-09-09 06:24] LABS: ALBUMIN 2.1 GM/DL (3.2-5.2); BILIRUBIN,TOTAL 0.6 MG/DL (0.2-1.0); CREATININE FOR GFR 1.85 MG/DL (0.70-1.30); GLOMERULAR FILTRATION RATE 36.8 (>35); MAGNESIUM LEVEL 2.4 MG/DL (1.8-2.4); POTASSIUM SERUM 4.9 MEQ/L (3.5-5.1); TOTAL PROTEIN 5.9 GM/DL (6.4-8.2); VANCOMYCIN RANDOM 21.3 UG/ML
[2021-09-09 07:17] LABS: ANISOCYTOSIS 1+; ATYPICAL LYMPH 25 % (0-5); LYMPHOCYTES 18 % (16-44); MONOCYTES 2 % (0-5); NEUTROPHILS 55 % (28-66); PLATELET ESTIMATE DECREASED (NORMAL)
[2021-09-09 07:18] LABS: SMUDGE CELLS 1+
[2021-09-09 07:20] LABS: C REACTIVE PROTEIN QUANTITATIV 13.9 MG/DL (0.00-0.30)
[2021-09-09] MEDS ORDERED: PILL CUTTER 1 EACH XX PRN (07:35)
[2021-09-09] MEDS: guaiFENesin ER 600 MG TAB PO SCH ×2 (07:40→21:16)
[2021-09-09] MEDS: BARICITINIB 2MG TABLET (OLUMIANT) FOR EUA PO SCH (07:40)
[2021-09-09] MEDS: DOXYCYCLINE HYCLATE 100 MG in D5W MINI-BAG PLUS 100 ML IV SCH ×2 (07:42→20:24)
[2021-09-09] MEDS: DIGOXIN 0.125 MG TAB PO SCH (07:42)
[2021-09-09] MEDS: ACETAMINOPHEN TAB 650MG DOSE (2X325MG) PO PRN ×2 (08:51→16:31)
[2021-09-09 09:22] LABS: DIGOXIN LEVEL 1.5 NG/ML (0.5-2.0)
[2021-09-09 11:07] LABS: CREATININE,RANDOM URINE 99.3 MG/DL
[2021-09-09] MEDS: NS 1,000 ML IV SCH (11:57)
[2021-09-09] MEDS: cefTRIAXone SOD 1 GM in D5W MINI-BAG PLUS 50 ML IV SCH (11:57)
[2021-09-09] MEDS: dexameTHASONE 4 MG/ML 1ML VIAL (J1100 PER 1MG) IV SCH (17:59)
[2021-09-09] MEDS: REMDESIVIR 100 MG in NS 250 ML IV SCH (21:16)
[2021-09-09] MEDS: SODIUM CHLORIDE 0.9% INJ 10 ML SYR IV SCH (21:16)
[2021-09-09] MEDS: ROSUVASTATIN 10 MG TAB (CRESTOR) PO SCH (21:16)
[2021-09-09] MEDS: PANTOPRAZOLE 40MG VIAL IV SCH (21:16)
[2021-09-09 22:23] LABS: CALCIUM LEVEL 7.5 MG/DL (8.8-10.2); CREATININE FOR GFR 1.47 MG/DL (0.70-1.30); MAGNESIUM LEVEL 2.3 MG/DL (1.8-2.4)
[2021-09-09 22:42] LABS: HEMATOCRIT 29.9 % (42.0-52.0); HEMOGLOBIN 10.2 g/dl (13.5-17.5); MEAN CORPUSCULAR HEMOGLOBIN 29.3 pg (27.0-33.0); MEAN CORPUSCULAR HGB CONC 34.1 g/dl (32.0-36.5); MEAN CORPUSCULAR VOLUME 85.9 fl (80.0-96.0); PLATELET COUNT, AUTOMATED 90 10^3/uL (150-450); RED BLOOD COUNT 3.48 10^6/uL (4.30-6.10)
[2021-09-09 22:48] LABS: ATYPICAL LYMPH 4 % (0-5); LYMPHOCYTES 52 % (16-44); MONOCYTES 1 % (0-5); NEUTROPHILS 40 % (28-66)
[2021-09-09 22:51] LABS: PLATELET ESTIMATE DECREASED (NORMAL)
[2021-09-10] VITALS (22 sets, daily range): BP systolic 120–167; BP diastolic 56–94; O2SAT 95–96
[2021-09-10] MEDS: NS 1,000 ML IV SCH ×2 (02:01→19:15)
[2021-09-10 05:25] LABS: HEMATOCRIT 30.1 % (42.0-52.0); MEAN CORPUSCULAR HEMOGLOBIN 28.8 pg (27.0-33.0); MEAN CORPUSCULAR HGB CONC 33.2 g/dl (32.0-36.5); MEAN CORPUSCULAR VOLUME 86.7 fl (80.0-96.0); RED BLOOD COUNT 3.47 10^6/uL (4.30-6.10); WHITE BLOOD COUNT 5.1 10^3/uL (4.0-10.0)
[2021-09-10 05:38] LABS: PLATELET COUNT, AUTOMATED 86 10^3/uL (150-450)
[2021-09-10 05:39] LABS: INR 1.42; PROTHROMBIN TIME 17.8 SECONDS (12.7-14.5)
[2021-09-10 05:41] LABS: PARTIAL THROMBOPLASTIN TIME 74.9 SECONDS (25.9-37.0)
[2021-09-10 06:09] LABS: ALBUMIN 1.8 GM/DL (3.2-5.2); BILIRUBIN,TOTAL 0.6 MG/DL (0.2-1.0); CALCIUM LEVEL 7.4 MG/DL (8.8-10.2); CREATININE FOR GFR 1.31 MG/DL (0.70-1.30); GLOMERULAR FILTRATION RATE 54.8 (>35); MAGNESIUM LEVEL 2.3 MG/DL (1.8-2.4); POTASSIUM SERUM 4.2 MEQ/L (3.5-5.1); TOTAL PROTEIN 4.5 GM/DL (6.4-8.2)
[2021-09-10 06:29] LABS: ANISOCYTOSIS 1+; ATYPICAL LYMPH 2 % (0-5); LYMPHOCYTES 47 % (16-44); NEUTROPHILS 50 % (28-66); OVALOCYTES 1+; PLATELET ESTIMATE DECREASED (NORMAL)
[2021-09-10] MEDS: DIGOXIN 0.125 MG TAB PO SCH (08:13)
[2021-09-10] MEDS: guaiFENesin ER 600 MG TAB PO SCH ×2 (08:13→21:17)
[2021-09-10] MEDS: DOXYCYCLINE HYCLATE 100 MG in D5W MINI-BAG PLUS 100 ML IV SCH ×2 (08:13→20:00)
[2021-09-10] MEDS: BARICITINIB 2MG TABLET (OLUMIANT) FOR EUA PO SCH (08:14)
[2021-09-10] MEDS: cefTRIAXone SOD 1 GM in D5W MINI-BAG PLUS 50 ML IV SCH (11:59)
[2021-09-10] MEDS: MULTIVITAMINS/MINERALS THERAP 1 TAB PO SCH (11:59)
[2021-09-10] MEDS: dexameTHASONE 4 MG/ML 1ML VIAL (J1100 PER 1MG) IV SCH (17:51)
[2021-09-10] MEDS: PANTOPRAZOLE 40MG VIAL IV SCH (21:17)
[2021-09-10] MEDS: FERROUS GLUCONATE 324 MG TAB PO SCH (21:17)
[2021-09-10] MEDS: ROSUVASTATIN 10 MG TAB (CRESTOR) PO SCH (21:17)
[2021-09-10] MEDS: SODIUM CHLORIDE 0.9% INJ 10 ML SYR IV SCH (21:18)
[2021-09-10] MEDS: REMDESIVIR 100 MG in NS 250 ML IV SCH (21:18)
[2021-09-10] MEDS: bisoproloL fumarate 5 MG TAB PO SCH (21:18)
[2021-09-11] VITALS (18 sets, daily range): BP systolic 139–179; BP diastolic 64–90
[2021-09-11 02:42] LABS: HEMATOCRIT 30.4 % (42.0-52.0); HEMOGLOBIN 10.1 g/dl (13.5-17.5); LYMPH # 2.7 10^3/uL (1.5-5.0); LYMPH % 39.9 % (24.0-44.0); MEAN CORPUSCULAR HEMOGLOBIN 28.9 pg (27.0-33.0); MEAN CORPUSCULAR HGB CONC 33.2 g/dl (32.0-36.5); MEAN CORPUSCULAR VOLUME 86.9 fl (80.0-96.0); MONO # 0.2 10^3/uL (0.0-0.8); NEUTROPHILS # 3.8 10^3/uL (1.5-8.5); NEUTROPHILS % 56.4 % (36.0-66.0); PLATELET COUNT, AUTOMATED 105 10^3/uL (150-450); WHITE BLOOD COUNT 6.7 10^3/uL (4.0-10.0)
[2021-09-11 03:03] LABS: INR 1.48; PROTHROMBIN TIME 18.3 SECONDS (12.7-14.5)
[2021-09-11 03:04] LABS: ALBUMIN 1.9 GM/DL (3.2-5.2); ALT/SGPT 32 U/L (12-78); BILIRUBIN,TOTAL 0.6 MG/DL (0.2-1.0); BLOOD UREA NITROGEN 51 MG/DL (7-18); CARBON DIOXIDE LEVEL 19 MEQ/L (21-32); CHLORIDE LEVEL 117 MEQ/L (98-107); CREATININE FOR GFR 1.19 MG/DL (0.70-1.30); GLOMERULAR FILTRATION RATE > 60.0 (>35); GLUCOSE, FASTING 153 MG/DL (70-100); MAGNESIUM LEVEL 2.3 MG/DL (1.8-2.4); POTASSIUM SERUM 4.2 MEQ/L (3.5-5.1); SODIUM LEVEL 143 MEQ/L (136-145); TOTAL PROTEIN 5.1 GM/DL (6.4-8.2)
[2021-09-11 03:05] LABS: PARTIAL THROMBOPLASTIN TIME 69.5 SECONDS (25.9-37.0)
[2021-09-11] MEDS: DOXYCYCLINE HYCLATE 100 MG in D5W MINI-BAG PLUS 100 ML IV SCH ×2 (08:43→20:11)
[2021-09-11] MEDS: MULTIVITAMINS/MINERALS THERAP 1 TAB PO SCH (08:43)
[2021-09-11] MEDS: BARICITINIB 2MG TABLET (OLUMIANT) FOR EUA PO SCH (08:43)
[2021-09-11] MEDS: DIGOXIN 0.125 MG TAB PO SCH (08:46)
[2021-09-11] MEDS: guaiFENesin ER 600 MG TAB PO SCH ×2 (08:46→20:12)
[2021-09-11] MEDS: ENOXAPARIN 80MG/0.8ML SYRINGE (J1650 PER 10MG) SC SCH ×2 (09:45→20:12)
[2021-09-11] MEDS: LOPERAMIDE 2 MG CAPLET PO PRN (11:34)
[2021-09-11] MEDS: NYSTATIN CREAM 15 GM TOP SCH (11:34)
[2021-09-11] MEDS: cefTRIAXone SOD 1 GM in D5W MINI-BAG PLUS 50 ML IV SCH (11:34)
[2021-09-11 15:09] LABS: BODY FLUID CULTURE Not indicated. (.); LEGIONELLA ANTIGEN URINE Negative (Negative); ORGANISM ID Not indicated. (.); SPECIMEN SOURCE Urine (.); URINE STREP PNEUMONIAE ANTIGEN Negative (Negative)
[2021-09-11] MEDS: dexameTHASONE 4 MG/ML 1ML VIAL (J1100 PER 1MG) IV SCH (17:36)
[2021-09-11] MEDS: FERROUS GLUCONATE 324 MG TAB PO SCH ×2 (20:11→20:28)
[2021-09-11] MEDS: ROSUVASTATIN 10 MG TAB (CRESTOR) PO SCH (20:12)
[2021-09-11] MEDS: bisoproloL fumarate 5 MG TAB PO SCH (20:12)
[2021-09-11] MEDS: PANTOPRAZOLE 40MG VIAL IV SCH (21:08)
[2021-09-11] MEDS: REMDESIVIR 100 MG in NS 250 ML IV SCH (21:08)
[2021-09-11] MEDS: SODIUM CHLORIDE 0.9% INJ 10 ML SYR IV SCH (22:19)
[2021-09-12] VITALS (12 sets, daily range): BP systolic 124–168; BP diastolic 62–94
[2021-09-12 05:05] LABS: HEMATOCRIT 30.6 % (42.0-52.0); HEMOGLOBIN 10.1 g/dl (13.5-17.5); LYMPH # 1.3 10^3/uL (1.5-5.0); LYMPH % 21.7 % (24.0-44.0); MEAN CORPUSCULAR HEMOGLOBIN 28.9 pg (27.0-33.0); MEAN CORPUSCULAR VOLUME 87.7 fl (80.0-96.0); MONO # 0.2 10^3/uL (0.0-0.8); NEUTROPHILS # 4.4 10^3/uL (1.5-8.5); NEUTROPHILS % 73.6 % (36.0-66.0); PLATELET COUNT, AUTOMATED 104 10^3/uL (150-450); RED BLOOD COUNT 3.49 10^6/uL (4.30-6.10)
[2021-09-12 05:13] LABS: INR 1.3; PROTHROMBIN TIME 16.6 SECONDS (12.7-14.5)
[2021-09-12 05:42] LABS: ALT/SGPT 61 U/L (12-78); BILIRUBIN,TOTAL 0.6 MG/DL (0.2-1.0); BLOOD UREA NITROGEN 51 MG/DL (7-18); CALCIUM LEVEL 7.8 MG/DL (8.8-10.2); CARBON DIOXIDE LEVEL 20 MEQ/L (21-32); CHLORIDE LEVEL 117 MEQ/L (98-107); CREATININE FOR GFR 1.11 MG/DL (0.70-1.30); FERRITIN 1539 NG/ML (26-388); GLOMERULAR FILTRATION RATE > 60.0 (>35); GLUCOSE, FASTING 146 MG/DL (70-100); LDH LACTATE DEHYDROGENASE 1000 U/L (87-241); MAGNESIUM LEVEL 2.3 MG/DL (1.8-2.4); NT-PRO BNP 5025 PG/ML (<450); POTASSIUM SERUM 4.3 MEQ/L (3.5-5.1); SODIUM LEVEL 146 MEQ/L (136-145); TOTAL PROTEIN 4.5 GM/DL (6.4-8.2)
[2021-09-12] MEDS: DOXYCYCLINE HYCLATE 100 MG in D5W MINI-BAG PLUS 100 ML IV SCH ×2 (07:27→20:06)
[2021-09-12] MEDS: MULTIVITAMINS/MINERALS THERAP 1 TAB PO SCH (08:03)
[2021-09-12] MEDS: DIGOXIN 0.125 MG TAB PO SCH (08:03)
[2021-09-12] MEDS: NYSTATIN CREAM 15 GM TOP SCH (08:04)
[2021-09-12] MEDS: guaiFENesin ER 600 MG TAB PO SCH (08:06)
[2021-09-12] MEDS: ENOXAPARIN 80MG/0.8ML SYRINGE (J1650 PER 10MG) SC SCH ×2 (08:06→20:06)
[2021-09-12] MEDS ORDERED: BARICITINIB 2MG TABLET (OLUMIANT) FOR EUA PO SCH (09:00)
[2021-09-12] MEDS: cefTRIAXone SOD 1 GM in D5W MINI-BAG PLUS 50 ML IV SCH (11:19)
[2021-09-12] MEDS ORDERED: HALOPERIDOL 5MG/ML VIAL (J1630 PER 1) IV PRN (14:45)
[2021-09-12] MEDS: dexameTHASONE 4 MG/ML 1ML VIAL (J1100 PER 1MG) IV SCH (17:14)
[2021-09-12] MEDS: LOPERAMIDE 2 MG CAPLET PO PRN (17:29)
[2021-09-12] MEDS: bisoproloL fumarate 5 MG TAB PO SCH (20:06)
[2021-09-12] MEDS: REMDESIVIR 100 MG in NS 250 ML IV SCH (21:14)
[2021-09-12] MEDS: PANTOPRAZOLE 40MG VIAL IV SCH (21:14)
[2021-09-12] MEDS: ACETAMINOPHEN TAB 650MG DOSE (2X325MG) PO PRN (21:15)
[2021-09-12] MEDS ORDERED: diphenhydrAMINE 50MG/ML VIAL (J1200) IV STA (21:18)
[2021-09-12] MEDS: LORazepam 2 MG/ML VIAL IV STA (21:49)
[2021-09-12] MEDS: MORPHINE 2 MG/ML 1ML VIAL IV ONE (21:50)
[2021-09-12] MEDS: SODIUM CHLORIDE 0.9% INJ 10 ML SYR IV SCH (22:59)
[2021-09-13] VITALS: BP 136/88
[2021-09-13] MEDS: LORazepam 2 MG/ML VIAL IV STA (00:19)
[2021-09-13 02:00] VITALS: BP 137/65
[2021-09-13] MEDS: MORPHINE 2 MG/ML 1ML VIAL IV ONE ×3 (02:59→06:45)
[2021-09-13] MEDS ORDERED: diphenhydrAMINE 50MG/ML VIAL (J1200) IV STA (03:44)
[2021-09-13 04:00] VITALS: BP 154/67
[2021-09-13 05:08] LABS: HEMATOCRIT 29.4 % (42.0-52.0); HEMOGLOBIN 9.7 g/dl (13.5-17.5); LYMPH % 16.5 % (24.0-44.0); MEAN CORPUSCULAR HEMOGLOBIN 28.6 pg (27.0-33.0); MEAN CORPUSCULAR VOLUME 86.7 fl (80.0-96.0); MONO # 0.2 10^3/uL (0.0-0.8); MONO % 3.5 % (2.0-8.0); NEUTROPHILS # 4.8 10^3/uL (1.5-8.5); NEUTROPHILS % 79.3 % (36.0-66.0); PLATELET COUNT, AUTOMATED 105 10^3/uL (150-450); RED BLOOD COUNT 3.39 10^6/uL (4.30-6.10); WHITE BLOOD COUNT 6.1 10^3/uL (4.0-10.0)
[2021-09-13 05:33] LABS: ALBUMIN 2.1 GM/DL (3.2-5.2); ALT/SGPT 56 U/L (12-78); BILIRUBIN,TOTAL 0.6 MG/DL (0.2-1.0); BLOOD UREA NITROGEN 48 MG/DL (7-18); CALCIUM LEVEL 7.8 MG/DL (8.8-10.2); CARBON DIOXIDE LEVEL 22 MEQ/L (21-32); CHLORIDE LEVEL 117 MEQ/L (98-107); CREATININE FOR GFR 1.08 MG/DL (0.70-1.30); GLOMERULAR FILTRATION RATE > 60.0 (>35); GLUCOSE, FASTING 146 MG/DL (70-100); MAGNESIUM LEVEL 2.3 MG/DL (1.8-2.4); POTASSIUM SERUM 4.6 MEQ/L (3.5-5.1); SODIUM LEVEL 146 MEQ/L (136-145); TOTAL PROTEIN 4.5 GM/DL (6.4-8.2)
[2021-09-13 06:00] VITALS: BP 148/71
[2021-09-13] MEDS ORDERED: ATROPINE SULFATE 1% OP SOLN 2 ML BTL SL PRN (06:45)
[2021-09-13] MEDS ORDERED: MORPHINE 2 MG/ML 1ML VIAL IV PRN (06:45)
[2021-09-13] MEDS ORDERED: FLEET ENEMA PR PRN (06:45)
[2021-09-13] MEDS ORDERED: SCOPOLAMINE 1MG TRANSDERMAL PATCH TOP PRN (06:45)
[2021-09-13] MEDS ORDERED: LORazepam 2 MG/ML VIAL IV PRN ×2 (06:45→08:15)
[2021-09-13] MEDS ORDERED: MORPHINE 2 MG/ML 1ML VIAL IV STA (07:56)
[2021-09-13] MEDS ORDERED: LORazepam 2 MG/ML VIAL IV STA (07:56)
[2021-09-13] MEDS: MORPHINE 2 MG/ML 1ML VIAL IV PRN ×2 (08:36→09:57)
[2021-09-13] MEDS ORDERED: MORPHINE 10 MG/ML 1ML VIAL IV PRN (10:45)
[2021-09-13] MEDS: MORPHINE 10MG/0.5ML ORAL CONCENTRATE SOLUTION U/D SL PRN ×2 (10:49→12:12)
== END 2021-09-13 14:45 | disposition expired | DRG 177 ==
LOC: EDBD 13:35 → M ED 13:35 → M ED INP 18:46 → M ICU 20:50
PROVIDERS: ADMIT Internal Medicine; ATTEND Internal Medicine
PROC: 3E0333Z Introduction of Anti-inflammatory into Peripheral Vein, Percutaneous Approach (ICD-10-PCS; principal; 2021-09-08)
PROC: XW033E5 Introduction of Remdesivir Anti-infective into Peripheral Vein, Percutaneous Approach, New Technology Group 5 (ICD-10-PCS; 2021-09-08)
DX: U07.1 COVID-19 (principal); J12.82 Pneumonia due to coronavirus disease 2019; J96.01 Acute respiratory failure with hypoxia; G93.41 Metabolic encephalopathy; I26.99 Other pulmonary embolism without acute cor pulmonale; I48.92 Unspecified atrial flutter; N17.9 Acute kidney failure, unspecified; C83.10 Mantle cell lymphoma, unspecified site; D84.9 Immunodeficiency, unspecified; Z66 Do not resuscitate; I48.0 Paroxysmal atrial fibrillation; I49.5 Sick sinus syndrome; Z95.5 Presence of coronary angioplasty implant and graft; I12.9 Hypertensive chronic kidney disease with stage 1 through stage 4 chronic kidney disease, or unspecified chronic kidney disease; E78.5 Hyperlipidemia, unspecified; N18.30 Chronic kidney disease, stage 3 unspecified; H91.90 Unspecified hearing loss, unspecified ear; Z85.46 Personal history of malignant neoplasm of prostate; Z95.0 Presence of cardiac pacemaker; Z92.21 Personal history of antineoplastic chemotherapy; R19.7 Diarrhea, unspecified; R74.01 Elevation of levels of liver transaminase levels; R97.20 Elevated prostate specific antigen [PSA]; Z79.899 Other long term (current) drug therapy; Z79.01 Long term (current) use of anticoagulants; D64.9 Anemia, unspecified; D69.6 Thrombocytopenia, unspecified